=== PATIENT | male | born 1950 | race Caucasian/White ===

== ENCOUNTER → 2016-05-24 | Outpatient (CLI) | payer OTHER | END | disposition home or self-care (01) | LOC: Rad HDHVI 13:31 | PROVIDERS: ATTEND Internal Medicine Cardiovascular Disease | DX: I50.23 Acute on chronic systolic (congestive) heart failure (principal); I25.5 Ischemic cardiomyopathy | CPT/HCPCS: 93306 ==

== ENCOUNTER 2016-05-28 11:48 | Inpatient (IN) | payer OTHER ==
[~2016-05-28] VITALS: Ht 172.7 cm; Wt 137.5 kg
[2016-05-28] MEDS ORDERED: AMLO10TA2 PO (13:39)
[2016-05-28] MEDS ORDERED: BD (13:39)
[2016-05-28] MEDS ORDERED: ALLO100T PO (13:39)
[2016-05-28 13:54] LABS: Basophils # (auto) 0 uL; Basophils % (auto) 0.2 % (0.0-2.0); Eosinophils # (auto) 0.1 uL; Eosinophils % (auto) 0.8 % (0.0-7.0); Hematocrit 29.9 % (41.0-53.0); Hemoglobin 9.6 g/dL (13.5-17.5); Lymphocytes # (auto) 1.3 uL; Lymphocytes % (auto) 19.3 % (10.0-50.0); Mean Corpuscular Hgb Conc. 32.3 g/dL (32.0-36.0); Mean Platelet Volume 8.8 fL (7.4-10.4); Monocytes # (auto) 0.5 uL; Monocytes % (auto) 7.7 % (0.0-12.0); Platelet Count (auto) 208 10^3/uL (140-450); Red Cell Distribution Width 15.6 % (11.6-16.0)
[2016-05-28 14:07] LABS: Partial Thromboplastin Time 29.6 sec (22.64-33.71)
[2016-05-28 14:14] LABS: Albumin 3.6 g/dL (3.4-5.0); BUN/Creatinine Ratio 16.3; Calcium 8.4 mg/dL (8.5-10.1); Potassium 4.2 mmol/L (3.5-5.1)
[2016-05-28 14:16] LABS: Bilirubin, Total 0.5 mg/dL (0.2-1.0); Total Protein 7.4 g/dL (6.4-8.2)
[2016-05-28 14:23] LABS: B-Type Natriuretic Peptide 871.51 pg/mL (0-100); Temperature: 23.5 C (20.0-25.0)
[2016-05-28 14:31] LABS: INR 1.18 (0.9-1.15); Prothrombin Time 12.7 sec (9.37-12.3)
[2016-05-28] MEDS ORDERED: FUROSEMIDE 40 MG/4 ML VIAL IV ONE (16:30)
[2016-05-28] MEDS ORDERED: DEXTROSE (50%) 50ML SYRG IV PRN (18:45)
[2016-05-28] MEDS ORDERED: ONDANSETRON HCL 4 MG/2 ML VIAL IV PRN (19:00)
[2016-05-28] MEDS ORDERED: MORPHINE SULF INJ 2 MG/ML SYRINGE 1ML IV PRN ×2 (19:00)
[2016-05-28] MEDS ORDERED: NITROGLYCERIN 0.4 MG SL TAB SL PRN ×2 (19:00)
[2016-05-28] MEDS ORDERED: ACETAMINOPHEN 325 MG TAB PO PRN (19:00)
[2016-05-28] MEDS ORDERED: ASPirin-EC 81 mg tab PO ONE (19:00)
[2016-05-28] MEDS ORDERED: ALUM & MAG HYDROX-SIMETH LIQ(MAALOX) 30 ML PO PRN (19:00)
[2016-05-28] MEDS ORDERED: ZOLPIDEM TARTRATE 5 MG TAB PO PRN (19:00)
[2016-05-28] MEDS ORDERED: LORazepam 0.5 MG TAB PO PRN (19:00)
[2016-05-28] MEDS ORDERED: traMADol HCL 50 MG TAB PO PRN (19:00)
[2016-05-28] MEDS: DOCUSATE SOD 100 MG CAP PO SCH (20:13)
[2016-05-28 20:50] VITALS: BP 135/84
[2016-05-28] MEDS ORDERED: GLIP-204 PO (21:07)
[2016-05-28] MEDS ORDERED: INSUINJ18 SC (21:07)
[2016-05-28] MEDS ORDERED: TRAM50TA2 PO (21:07)
[2016-05-28] MEDS ORDERED: ACET325T82 PO (21:07)
[2016-05-28] MEDS ORDERED: FURO40TA PO (21:07)
[2016-05-28] MEDS ORDERED: CARV25TA PO (21:07)
[2016-05-28] MEDS ORDERED: FENO160T8 PO (21:07)
[2016-05-28] MEDS ORDERED: GABA-339 PO (21:07)
[2016-05-28] MEDS ORDERED: ERGO1CAP6 PO (21:07)
[2016-05-28] MEDS ORDERED: LEVO75TA6 PO (21:07)
[2016-05-28] MEDS ORDERED: ASPI-231 PO (21:07)
[2016-05-28] MEDS ORDERED: HYDR-2652 PO (21:07)
[2016-05-28] MEDS ORDERED: FER325T PO (21:07)
[2016-05-28] MEDS ORDERED: ATO40T PO (21:07)
[2016-05-28] MEDS ORDERED: ISOS60TA24 PO (21:07)
[2016-05-28 22:30] LABS: Urine Bilirubin Negative (Negative); Urine Blood Negative /uL (Negative); Urine Color Yellow (Yellow); Urine Glucose Normal (Normal); Urine Hyaline Cast FEW /lpf (0 - 2); Urine Ketone Negative (Negative); Urine Nitrite Negative (Negative); Urine RBC <1 /hpf (0 - 3); Urine Urobilinogen Normal (Negative)
[2016-05-28] MEDS: hydrALAZINE HCL 25 MG TAB PO SCH (22:34)
[2016-05-28] MEDS: GABAPENTIN 300 MG CAP PO SCH (22:34)
[2016-05-28] MEDS: SODIUM CHLOR 0.9% PF (SALINE LOCK) 10ML VIAL IV SCH (22:34)
[2016-05-28] MEDS: ATORVASTATIN 20 MG TAB PO SCH (22:34)
[2016-05-28] MEDS: CARVEDILOL 12.5 MG TAB PO SCH (22:35)
[2016-05-28] MEDS: POTASSIUM CHLORIDE 8 MEQ TAB PO SCH (22:35)
[2016-05-28] MEDS: ACCU-CHEK COMFORT CURVE STRIP VI SCH (22:38)
[2016-05-28] MEDS: InsuLIN REG 1unit/0.01ml Soln (100units/ml) SC SCH (22:38)
[2016-05-28] MEDS: INSULIN 70/30 1unit/0.01ml Susp (100units/ml) SC SCH (22:40)
[2016-05-29] VITALS (8 sets, daily range): BP systolic 93–149; BP diastolic 56–76
[2016-05-29] MEDS: GABAPENTIN 300 MG CAP PO SCH (05:33)
[2016-05-29] MEDS: hydrALAZINE HCL 25 MG TAB PO SCH ×3 (05:34→22:07)
[2016-05-29] MEDS: FUROSEMIDE 40 MG/4 ML VIAL IV SCH ×2 (05:35→18:35)
[2016-05-29] MEDS: SODIUM CHLOR 0.9% PF (SALINE LOCK) 10ML VIAL IV SCH ×3 (05:35→22:07)
[2016-05-29 05:58] LABS: Basophils # (auto) 0 uL; Basophils % (auto) 0.3 % (0.0-2.0); Eosinophils # (auto) 0.1 uL; Eosinophils % (auto) 0.9 % (0.0-7.0); Hemoglobin 9.6 g/dL (13.5-17.5); Lymphocytes # (auto) 1.1 uL; Lymphocytes % (auto) 18.9 % (10.0-50.0); Mean Corpuscular Hemoglobin 29.5 pg (28.0-32.0); Mean Corpuscular Hgb Conc. 32.9 g/dL (32.0-36.0); Mean Corpuscular Volume 89.8 fL (80.0-100.0); Mean Platelet Volume 8.7 fL (7.4-10.4); Monocytes # (auto) 0.4 uL; Monocytes % (auto) 7.6 % (0.0-12.0); Neutrophils # (auto) 4.2 uL; Neutrophils % (auto) 72.3 % (37.0-80.0); Platelet Count (auto) 204 10^3/uL (140-450); Red Cell Distribution Width 15.5 % (11.6-16.0); White Blood Cell 5.8 10^3/uL (4.4-10.8)
[2016-05-29 06:26] LABS: Albumin 3.4 g/dL (3.4-5.0); BUN/Creatinine Ratio 16.9; Bilirubin, Total 0.5 mg/dL (0.2-1.0); Calcium 8.8 mg/dL (8.5-10.1); Magnesium 3.2 mg/dL (1.6-2.6); Total Protein 7.4 g/dL (6.4-8.2)
[2016-05-29] MEDS: LEVOTHYROXINE SODIUM 25 MCG TAB PO SCH (06:28)
[2016-05-29] MEDS: ACCU-CHEK COMFORT CURVE STRIP VI SCH ×4 (06:28→22:06)
[2016-05-29] MEDS: glipiZIDE 5 MG TAB PO SCH (06:28)
[2016-05-29] MEDS: InsuLIN REG 1unit/0.01ml Soln (100units/ml) SC SCH ×4 (06:28→22:00)
[2016-05-29] MEDS ORDERED: LOSARTAN POTASSIUM 25 MG TAB PO SCH (10:00)
[2016-05-29] MEDS: INSULIN 70/30 1unit/0.01ml Susp (100units/ml) SC SCH ×2 (10:00→22:00)
[2016-05-29] MEDS: POTASSIUM CHLORIDE 8 MEQ TAB PO SCH (10:13)
[2016-05-29] MEDS: ASPirin-EC 81 mg tab PO SCH (10:14)
[2016-05-29] MEDS: ISOSORBIDE MONONITRATE 60 MG TAB PO SCH (10:14)
[2016-05-29] MEDS: ALLOPURINOL 100 MG TAB PO SCH (10:15)
[2016-05-29] MEDS: DOCUSATE SOD 100 MG CAP PO SCH (10:15)
[2016-05-29] MEDS: CARVEDILOL 12.5 MG TAB PO SCH (10:16)
[2016-05-29] MEDS: FERROUS SULFATE 325 MG TAB PO SCH (10:17)
[2016-05-29] MEDS: CLOPIDOGREL BISULFATE 75 MG TAB PO SCH (10:17)
[2016-05-29] MEDS: CHOLECALCIFEROL (VITD3) 1,000 UNIT TAB PO SCH (10:17)
[2016-05-29] MEDS: CARVEDILOL 3.125 MG TAB PO SCH (22:00)
[2016-05-29] MEDS: ATORVASTATIN 20 MG TAB PO SCH (22:08)
[2016-05-29] MEDS: GABAPENTIN 400 MG CAP PO SCH (22:08)
[2016-05-30] VITALS (7 sets, daily range): BP systolic 112–168; BP diastolic 53–86
[2016-05-30] MEDS: hydrALAZINE HCL 25 MG TAB PO SCH ×3 (06:00→22:11)
[2016-05-30] MEDS: glipiZIDE 5 MG TAB PO SCH (06:31)
[2016-05-30] MEDS: SODIUM CHLOR 0.9% PF (SALINE LOCK) 10ML VIAL IV SCH ×3 (06:31→22:12)
[2016-05-30] MEDS: FUROSEMIDE 40 MG/4 ML VIAL IV SCH ×2 (06:31→17:43)
[2016-05-30] MEDS: LEVOTHYROXINE SODIUM 25 MCG TAB PO SCH (06:32)
[2016-05-30] MEDS: InsuLIN REG 1unit/0.01ml Soln (100units/ml) SC SCH ×4 (06:32→22:00)
[2016-05-30] MEDS: ACCU-CHEK COMFORT CURVE STRIP VI SCH ×4 (06:32→22:12)
[2016-05-30 06:58] LABS: Basophils # (auto) 0 uL; Basophils % (auto) 0.4 % (0.0-2.0); Eosinophils # (auto) 0.1 uL; Eosinophils % (auto) 1.8 % (0.0-7.0); Hematocrit 30.7 % (41.0-53.0); Hemoglobin 9.9 g/dL (13.5-17.5); Lymphocytes # (auto) 1.5 uL; Mean Corpuscular Hemoglobin 28.9 pg (28.0-32.0); Mean Corpuscular Hgb Conc. 32.1 g/dL (32.0-36.0); Mean Corpuscular Volume 89.9 fL (80.0-100.0); Mean Platelet Volume 8.8 fL (7.4-10.4); Monocytes # (auto) 0.5 uL; Monocytes % (auto) 8.1 % (0.0-12.0); Neutrophils % (auto) 65.7 % (37.0-80.0); Platelet Count (auto) 205 10^3/uL (140-450); Red Cell Distribution Width 15.6 % (11.6-16.0); White Blood Cell 6.1 10^3/uL (4.4-10.8)
[2016-05-30 07:15] LABS: BUN/Creatinine Ratio 15.7; Calcium 8.6 mg/dL (8.5-10.1); Magnesium 2.9 mg/dL (1.6-2.6); Potassium 4.1 mmol/L (3.5-5.1)
[2016-05-30] MEDS: CARVEDILOL 3.125 MG TAB PO SCH ×2 (10:00→22:00)
[2016-05-30] MEDS: ISOSORBIDE MONONITRATE 60 MG TAB PO SCH ×2 (10:00→11:34)
[2016-05-30] MEDS: DOCUSATE SOD 100 MG CAP PO SCH (10:00)
[2016-05-30] MEDS: ASPirin-EC 81 mg tab PO SCH (10:17)
[2016-05-30] MEDS: ALLOPURINOL 100 MG TAB PO SCH (10:17)
[2016-05-30] MEDS: CLOPIDOGREL BISULFATE 75 MG TAB PO SCH (10:17)
[2016-05-30] MEDS: CHOLECALCIFEROL (VITD3) 1,000 UNIT TAB PO SCH (10:17)
[2016-05-30] MEDS: GABAPENTIN 400 MG CAP PO SCH ×2 (10:17→22:12)
[2016-05-30] MEDS: FERROUS SULFATE 325 MG TAB PO SCH (10:17)
[2016-05-30] MEDS: INSULIN 70/30 1unit/0.01ml Susp (100units/ml) SC SCH ×2 (10:22→22:13)
[2016-05-30] MEDS: POTASSIUM CHLORIDE 8 MEQ TAB PO SCH (10:22)
[2016-05-30] MEDS ORDERED: GIVE UN DILUTED IV ONE (15:30)
[2016-05-30] MEDS ORDERED: ADENOSINE IV ONE (15:30)
[2016-05-30] MEDS: ATORVASTATIN 20 MG TAB PO SCH (22:12)
[2016-05-31 05:30] VITALS: BP 140/60
[2016-05-31] MEDS: FUROSEMIDE 40 MG/4 ML VIAL IV SCH (05:43)
[2016-05-31] MEDS: SODIUM CHLOR 0.9% PF (SALINE LOCK) 10ML VIAL IV SCH (05:43)
[2016-05-31] MEDS: hydrALAZINE HCL 25 MG TAB PO SCH ×2 (05:44→14:21)
[2016-05-31] MEDS: glipiZIDE 5 MG TAB PO SCH (06:10)
[2016-05-31] MEDS: ACCU-CHEK COMFORT CURVE STRIP VI SCH ×2 (06:11→11:57)
[2016-05-31] MEDS: LEVOTHYROXINE SODIUM 25 MCG TAB PO SCH (06:11)
[2016-05-31] MEDS: InsuLIN REG 1unit/0.01ml Soln (100units/ml) SC SCH ×2 (06:11→11:57)
[2016-05-31 08:00] VITALS: BP 157/66
[2016-05-31 09:19] VITALS: BP 157/66
[2016-05-31] MEDS: ALLOPURINOL 100 MG TAB PO SCH (10:00)
[2016-05-31] MEDS: DOCUSATE SOD 100 MG CAP PO SCH (10:00)
[2016-05-31] MEDS: CHOLECALCIFEROL (VITD3) 1,000 UNIT TAB PO SCH (10:25)
[2016-05-31] MEDS: GABAPENTIN 400 MG CAP PO SCH (10:26)
[2016-05-31] MEDS: ISOSORBIDE MONONITRATE 60 MG TAB PO SCH (10:27)
[2016-05-31] MEDS: POTASSIUM CHLORIDE 8 MEQ TAB PO SCH (10:28)
[2016-05-31] MEDS: CLOPIDOGREL BISULFATE 75 MG TAB PO SCH (10:28)
[2016-05-31] MEDS: FERROUS SULFATE 325 MG TAB PO SCH (10:29)
[2016-05-31] MEDS: ASPirin-EC 81 mg tab PO SCH (10:29)
[2016-05-31] MEDS: CARVEDILOL 3.125 MG TAB PO SCH (10:30)
[2016-05-31] MEDS: INSULIN 70/30 1unit/0.01ml Susp (100units/ml) SC SCH (10:37)
[2016-05-31 13:00] VITALS: BP 154/74
[2016-05-31 15:00] VITALS: BP 154/74
== END 2016-05-31 15:30 | disposition home or self-care (01) | DRG 313 ==
LOC: ER 11:48 → TELE 11:49 → TELE-CENTR 20:50
PROVIDERS: ADMIT Internal Medicine; ATTEND Internal Medicine Cardiovascular Disease
DX: R07.89 Other chest pain (principal); I50.43 Acute on chronic combined systolic (congestive) and diastolic (congestive) heart failure; I13.0 Hypertensive heart and chronic kidney disease with heart failure and stage 1 through stage 4 chronic kidney disease, or unspecified chronic kidney disease; D68.9 Coagulation defect, unspecified; Z68.42 Body mass index [BMI] 45.0-49.9, adult; N18.4 Chronic kidney disease, stage 4 (severe); D63.8 Anemia in other chronic diseases classified elsewhere; E03.9 Hypothyroidism, unspecified; E10.21 Type 1 diabetes mellitus with diabetic nephropathy; E10.22 Type 1 diabetes mellitus with diabetic chronic kidney disease; E66.9 Obesity, unspecified; E78.5 Hyperlipidemia, unspecified; X58.XXXA Exposure to other specified factors, initial encounter; E83.42 Hypomagnesemia; E83.51 Hypocalcemia; I25.10 Atherosclerotic heart disease of native coronary artery without angina pectoris; S82.90XA Unspecified fracture of unspecified lower leg, initial encounter for closed fracture; I25.2 Old myocardial infarction; Z82.49 Family history of ischemic heart disease and other diseases of the circulatory system; Z83.3 Family history of diabetes mellitus; Z95.0 Presence of cardiac pacemaker; Z95.1 Presence of aortocoronary bypass graft; Z95.5 Presence of coronary angioplasty implant and graft; Y93.89 Activity, other specified; Y92.89 Other specified places as the place of occurrence of the external cause; Y99.8 Other external cause status; Z88.8 Allergy status to other drugs, medicaments and biological substances
CPT/HCPCS: 36415; 71020; 78452; 80048; 80053; 80061; 81001; 82962; 83036; 83735; 83880; 84443; 84484; 85025; 85610; 85730; 93005; 93017; 94761; 96374; J0153; J1815

== ENCOUNTER 2016-07-28 18:40 | Inpatient (IN) | payer OTHER ==
[~2016-07-28] VITALS: Ht 167.6 cm; Wt 138.4 kg
[~2016-07-28 18:40] MED LIST: ACET325T82 PO; ALLO100T PO; AMLO10TA2 PO; ASPI-231 PO; ATO40T PO; CARV25TA PO; ERGO1CAP6 PO; FENO160T8 PO; FER325T PO; FURO40TA PO; GABA-339 PO; GLIP-204 PO; HYDR-2652 PO; INSUINJ18 SC; ISOS60TA24 PO; LEVO75TA6 PO; TRAM50TA2 PO
[2016-07-28 19:49] LABS: Basophils # (auto) 0 uL; Basophils % (auto) 0.4 % (0.0-2.0); CONDITION Y; Eosinophils # (auto) 0.1 uL; Eosinophils % (auto) 1.4 % (0.0-7.0); Hematocrit 30.5 % (41.0-53.0); Lymphocytes # (auto) 1.5 uL; Lymphocytes % (auto) 29.5 % (10.0-50.0); Mean Corpuscular Hgb Conc. 32.9 g/dL (32.0-36.0); Mean Corpuscular Volume 88.3 fL (80.0-100.0); Mean Platelet Volume 8.9 fL (7.4-10.4); Monocytes # (auto) 0.5 uL; Monocytes % (auto) 9.9 % (0.0-12.0); Neutrophils # (auto) 2.9 uL; Neutrophils % (auto) 58.8 % (37.0-80.0); Platelet Count (auto) 189 10^3/uL (140-450); Red Cell Distribution Width 18.8 % (11.6-16.0)
[2016-07-28 19:58] LABS: INR 1.22 (0.9-1.15)
[2016-07-28 20:01] LABS: Prothrombin Time 13.3 sec (9.37-12.3)
[2016-07-28 20:08] LABS: Albumin 3.8 g/dL (3.4-5.0); BUN/Creatinine Ratio 18.2; Bilirubin, Total 0.6 mg/dL (0.2-1.0); Calcium 8.7 mg/dL (8.5-10.1); Potassium 4.5 mmol/L (3.5-5.1); Total Protein 7.3 g/dL (6.4-8.2)
[2016-07-28 20:26] LABS: B-Type Natriuretic Peptide 966.91 pg/mL (0-100)
[2016-07-28 20:41] LABS: Temperature: 23.1 C (20.0-25.0)
[2016-07-28] MEDS ORDERED: LEVOFLOXACIN 750MG 150 ML IV ONE (21:00)
[2016-07-28] MEDS ORDERED: FUROSEMIDE 20 MG/2 ML VIAL IV ONE ×2 (21:00→21:45)
[2016-07-28] MEDS ORDERED: TEMAZEPAM 15 MG CAP PO PRN (23:15)
[2016-07-28] MEDS ORDERED: MORPHINE SULF INJ 2 MG/ML SYRINGE 1ML IV PRN (23:15)
[2016-07-28] MEDS ORDERED: ACETAMINOPHEN 325 MG TAB PO PRN (23:15)
[2016-07-28] MEDS ORDERED: DEXTROSE (50%) 50ML SYRG IV PRN (23:15)
[2016-07-28] MEDS ORDERED: ONDANSETRON HCL 4 MG/2 ML VIAL IV PRN (23:15)
[2016-07-28] MEDS ORDERED: NITROGLYCERIN 0.4 MG SL TAB SL PRN (23:15)
[2016-07-28] MEDS: ACCU-CHEK COMFORT CURVE STRIP VI SCH (23:39)
[2016-07-28] MEDS: InsuLIN REG 1unit/0.01ml Soln (100units/ml) SC SCH (23:39)
[2016-07-28 23:56] VITALS: BP 135/70
[2016-07-29] MEDS ORDERED: INSUINJ18 SC (01:20)
[2016-07-29 05:00] VITALS: BP 136/68
[2016-07-29 05:16] LABS: Basophils # (auto) 0 uL; Basophils % (auto) 0.3 % (0.0-2.0); CONDITION Y; DEFINITIVE SEE PRINTOUT; Eosinophils # (auto) 0.1 uL; Eosinophils % (auto) 1.2 % (0.0-7.0); Hematocrit 29.7 % (41.0-53.0); Hemoglobin 9.6 g/dL (13.5-17.5); Lymphocytes # (auto) 1.1 uL; Lymphocytes % (auto) 20.1 % (10.0-50.0); Mean Corpuscular Hemoglobin 28.8 pg (28.0-32.0); Mean Corpuscular Hgb Conc. 32.5 g/dL (32.0-36.0); Mean Corpuscular Volume 88.6 fL (80.0-100.0); Mean Platelet Volume 8.8 fL (7.4-10.4); Monocytes # (auto) 0.5 uL; Monocytes % (auto) 8.8 % (0.0-12.0); Neutrophils # (auto) 3.8 uL; Neutrophils % (auto) 69.6 % (37.0-80.0); Platelet Count (auto) 187 10^3/uL (140-450); Red Cell Distribution Width 19.5 % (11.6-16.0); White Blood Cell 5.5 10^3/uL (4.4-10.8)
[2016-07-29 05:30] LABS: Albumin 3.5 g/dL (3.4-5.0); BUN/Creatinine Ratio 18.3; Calcium 8.4 mg/dL (8.5-10.1); Potassium 4.2 mmol/L (3.5-5.1)
[2016-07-29 05:33] LABS: Bilirubin, Total 0.7 mg/dL (0.2-1.0); Total Protein 7.3 g/dL (6.4-8.2)
[2016-07-29] MEDS ORDERED: FUROSEMIDE 40 MG TAB PO SCH (06:00)
[2016-07-29] MEDS: InsuLIN REG 1unit/0.01ml Soln (100units/ml) SC SCH ×3 (06:00→18:01)
[2016-07-29] MEDS: hydrALAZINE HCL 25 MG TAB PO SCH ×3 (06:02→22:11)
[2016-07-29] MEDS: ACCU-CHEK COMFORT CURVE STRIP VI SCH ×3 (06:06→18:01)
[2016-07-29] MEDS: LEVOTHYROXINE SODIUM 25 MCG TAB PO SCH (06:28)
[2016-07-29] MEDS: glipiZIDE 5 MG TAB PO SCH (06:28)
[2016-07-29 08:00] VITALS: BP 127/63
[2016-07-29 08:50] VITALS: BP 127/63
[2016-07-29] MEDS ORDERED: cefTRIAXone 1GM/50ML D5W 50 ML IV SCH (09:00)
[2016-07-29] MEDS ORDERED: FAMOTIDINE 20 MG TAB PO SCH (10:00)
[2016-07-29] MEDS: ALLOPURINOL 100 MG TAB PO SCH (10:00)
[2016-07-29] MEDS: ISOSORBIDE MONONITRATE 60 MG TAB PO SCH (10:00)
[2016-07-29] MEDS ORDERED: AZITHROMYCIN 500MG/D5W 250ML 250 ML IV SCH (10:00)
[2016-07-29] MEDS: FAMOTIDINE 20 MG TAB PO SCH (10:28)
[2016-07-29] MEDS: CARVEDILOL 12.5 MG TAB PO SCH ×2 (10:28→22:11)
[2016-07-29] MEDS: amLODIPine BESYLATE 5 MG TAB PO SCH (10:29)
[2016-07-29] MEDS: ASPirin 81 mg TAB PO SCH (10:29)
[2016-07-29] MEDS: ENOXAPARIN SOD 30 MG/0.3 ML SYRINGE SC SCH (10:30)
[2016-07-29 11:42] VITALS: BP 143/77
[2016-07-29] MEDS ORDERED: BUMETANIDE INJECTION 25 MG in GIVE UN-DILUTED 0 ML IV SCH (15:30)
[2016-07-29 17:40] VITALS: BP 132/68
[2016-07-29 22:06] VITALS: BP 128/65
[2016-07-29] MEDS: ATORVASTATIN 20 MG TAB PO SCH (22:11)
[2016-07-30] MEDS: ACCU-CHEK COMFORT CURVE STRIP VI SCH ×5 (00:12→23:58)
[2016-07-30] MEDS: InsuLIN REG 1unit/0.01ml Soln (100units/ml) SC SCH ×5 (00:18→23:58)
[2016-07-30 05:02] VITALS: BP 139/67
[2016-07-30 06:25] LABS: Basophils # (auto) 0 uL; Basophils % (auto) 0.1 % (0.0-2.0); CONDITION Y; DEFINITIVE SEE PRINTOUT; Eosinophils # (auto) 0.1 uL; Eosinophils % (auto) 1.1 % (0.0-7.0); Hematocrit 30.1 % (41.0-53.0); Hemoglobin 9.9 g/dL (13.5-17.5); Lymphocytes # (auto) 1.2 uL; Lymphocytes % (auto) 17.6 % (10.0-50.0); Mean Corpuscular Hgb Conc. 32.9 g/dL (32.0-36.0); Mean Corpuscular Volume 88.2 fL (80.0-100.0); Mean Platelet Volume 8.7 fL (7.4-10.4); Monocytes # (auto) 0.5 uL; Monocytes % (auto) 8.2 % (0.0-12.0); Neutrophils # (auto) 4.8 uL; Platelet Count (auto) 193 10^3/uL (140-450); Red Cell Distribution Width 19.1 % (11.6-16.0); White Blood Cell 6.6 10^3/uL (4.4-10.8)
[2016-07-30] MEDS: hydrALAZINE HCL 25 MG TAB PO SCH ×3 (06:33→21:42)
[2016-07-30] MEDS: glipiZIDE 5 MG TAB PO SCH (06:33)
[2016-07-30] MEDS: LEVOTHYROXINE SODIUM 25 MCG TAB PO SCH (06:34)
[2016-07-30 06:38] LABS: BUN/Creatinine Ratio 18.9; Calcium 8.8 mg/dL (8.5-10.1); Magnesium 2.9 mg/dL (1.6-2.6); Phosphorus 4.2 mg/dL (2.5-4.90); Potassium 4.2 mmol/L (3.5-5.1)
[2016-07-30 08:44] VITALS: BP 141/66
[2016-07-30] MEDS ORDERED: BUMETANIDE INJECTION 25 MG in GIVE UN-DILUTED 0 ML IV SCH (09:00)
[2016-07-30] MEDS: ASPirin 81 mg TAB PO SCH (09:04)
[2016-07-30] MEDS: amLODIPine BESYLATE 5 MG TAB PO SCH (09:05)
[2016-07-30] MEDS: ISOSORBIDE MONONITRATE 60 MG TAB PO SCH (09:05)
[2016-07-30] MEDS: CARVEDILOL 12.5 MG TAB PO SCH ×2 (09:05→21:42)
[2016-07-30] MEDS: ENOXAPARIN SOD 30 MG/0.3 ML SYRINGE SC SCH (09:06)
[2016-07-30] MEDS: ALLOPURINOL 100 MG TAB PO SCH (09:06)
[2016-07-30] MEDS: FAMOTIDINE 20 MG TAB PO SCH (09:06)
[2016-07-30] MEDS: CLOTRIMAZOLE 1 % CREAM 15GM TOP SCH ×2 (09:34→21:42)
[2016-07-30 13:06] VITALS: BP 129/56
[2016-07-30 16:23] VITALS: BP 131/75
[2016-07-30] MEDS: ATORVASTATIN 20 MG TAB PO SCH (21:42)
[2016-07-30 21:46] VITALS: BP 128/71
[2016-07-31] MEDS: HYDROcodone-ACET 5/325MG TAB PO PRN ×2 (01:10→05:32)
[2016-07-31 05:02] VITALS: BP 126/71
[2016-07-31] MEDS: hydrALAZINE HCL 25 MG TAB PO SCH (05:31)
[2016-07-31] MEDS: ACCU-CHEK COMFORT CURVE STRIP VI SCH ×2 (05:39→11:49)
[2016-07-31] MEDS: InsuLIN REG 1unit/0.01ml Soln (100units/ml) SC SCH ×2 (05:39→11:49)
[2016-07-31 06:06] LABS: Basophils # (auto) 0 uL; Basophils % (auto) 0.3 % (0.0-2.0); CONDITION Y; DEFINITIVE SEE PRINTOUT; Eosinophils # (auto) 0.1 uL; Hematocrit 27.6 % (41.0-53.0); Hemoglobin 9.1 g/dL (13.5-17.5); Lymphocytes # (auto) 1.1 uL; Lymphocytes % (auto) 19.6 % (10.0-50.0); Mean Corpuscular Hgb Conc. 32.9 g/dL (32.0-36.0); Mean Platelet Volume 8.9 fL (7.4-10.4); Monocytes # (auto) 0.6 uL; Monocytes % (auto) 9.8 % (0.0-12.0); Neutrophils # (auto) 3.9 uL; Neutrophils % (auto) 69.3 % (37.0-80.0); Platelet Count (auto) 180 10^3/uL (140-450); Red Cell Distribution Width 19.2 % (11.6-16.0); White Blood Cell 5.7 10^3/uL (4.4-10.8)
[2016-07-31 06:36] LABS: BUN/Creatinine Ratio 20.7; Phosphorus 4.4 mg/dL (2.5-4.90); Potassium 4.1 mmol/L (3.5-5.1)
[2016-07-31] MEDS: glipiZIDE 5 MG TAB PO SCH (06:43)
[2016-07-31] MEDS: LEVOTHYROXINE SODIUM 25 MCG TAB PO SCH (06:44)
[2016-07-31 08:51] VITALS: BP 138/66
[2016-07-31] MEDS ORDERED: BUMETANIDE INJECTION 25 MG in GIVE UN-DILUTED 0 ML IV SCH (09:00)
[2016-07-31] MEDS ORDERED: guaiFENesin-DEXTROMETHORPHAN 5ML SYR PO PRN (09:30)
[2016-07-31] MEDS ORDERED: BUME1TAB26 PO (09:41)
[2016-07-31] MEDS ORDERED: GABAPENTIN 100 MG CAP PO SCH (10:00)
[2016-07-31] MEDS ORDERED: GABAPENTIN 400 MG CAP PO SCH (10:00)
[2016-07-31] MEDS: ISOSORBIDE MONONITRATE 60 MG TAB PO SCH (10:05)
[2016-07-31] MEDS: ASPirin 81 mg TAB PO SCH (10:05)
[2016-07-31] MEDS: CARVEDILOL 12.5 MG TAB PO SCH (10:05)
[2016-07-31] MEDS: amLODIPine BESYLATE 5 MG TAB PO SCH (10:06)
[2016-07-31] MEDS: FAMOTIDINE 20 MG TAB PO SCH (10:06)
[2016-07-31] MEDS: ALLOPURINOL 100 MG TAB PO SCH (10:07)
[2016-07-31] MEDS: CLOTRIMAZOLE 1 % CREAM 15GM TOP SCH (10:07)
[2016-07-31] MEDS: ENOXAPARIN SOD 30 MG/0.3 ML SYRINGE SC SCH (10:07)
[2016-07-31 13:00] VITALS: BP 138/65
== END 2016-07-31 12:05 | disposition home or self-care (01) | DRG 291 ==
LOC: ER 19:01 → TELE-CENTR 19:02
PROVIDERS: ADMIT Internal Medicine; ATTEND Nurse Practitioner Acute Care
DX: I13.0 Hypertensive heart and chronic kidney disease with heart failure and stage 1 through stage 4 chronic kidney disease, or unspecified chronic kidney disease (principal); I50.43 Acute on chronic combined systolic (congestive) and diastolic (congestive) heart failure; E43 Unspecified severe protein-calorie malnutrition; N17.9 Acute kidney failure, unspecified; N18.4 Chronic kidney disease, stage 4 (severe); Z68.42 Body mass index [BMI] 45.0-49.9, adult; I25.10 Atherosclerotic heart disease of native coronary artery without angina pectoris; M19.90 Unspecified osteoarthritis, unspecified site; D63.8 Anemia in other chronic diseases classified elsewhere; E78.5 Hyperlipidemia, unspecified; L08.9 Local infection of the skin and subcutaneous tissue, unspecified; R00.1 Bradycardia, unspecified; E11.22 Type 2 diabetes mellitus with diabetic chronic kidney disease; E66.01 Morbid (severe) obesity due to excess calories; I25.5 Ischemic cardiomyopathy; Z95.810 Presence of automatic (implantable) cardiac defibrillator; Z88.8 Allergy status to other drugs, medicaments and biological substances; Z90.49 Acquired absence of other specified parts of digestive tract; Z95.1 Presence of aortocoronary bypass graft; Z83.3 Family history of diabetes mellitus; Z82.49 Family history of ischemic heart disease and other diseases of the circulatory system; I25.2 Old myocardial infarction
CPT/HCPCS: 36415; 71010; 71020; 80048; 80053; 82962; 83735; 83880; 84100; 84484; 85025; 85379; 85610; 85730; 87040; 93005; 93970; 94761; 96365; 96375; J0696; J1815; J1956

== ENCOUNTER 2016-08-10 17:03 | Emergency (ER) | payer OTHER ==
[~2016-08-10] VITALS: Ht 157.5 cm; Wt 136.1 kg
[~2016-08-10 17:03] MED LIST changes: +BUME1TAB26 PO; -FURO40TA PO
[2016-08-11 06:06] VITALS: BP 158/78
[2016-08-11] MEDS ORDERED: HYDROcodone-ACET 5/325MG TAB PO ONE (07:30)
== END 2016-08-11 08:14 | disposition home or self-care (01) ==
LOC: ER 17:07
DX: N50.89 Other specified disorders of the male genital organs (principal); I25.810 Atherosclerosis of coronary artery bypass graft(s) without angina pectoris; E11.22 Type 2 diabetes mellitus with diabetic chronic kidney disease; I13.0 Hypertensive heart and chronic kidney disease with heart failure and stage 1 through stage 4 chronic kidney disease, or unspecified chronic kidney disease; N18.9 Chronic kidney disease, unspecified; I50.9 Heart failure, unspecified; E78.5 Hyperlipidemia, unspecified; I25.2 Old myocardial infarction; E07.9 Disorder of thyroid, unspecified; Z79.82 Long term (current) use of aspirin; Z79.4 Long term (current) use of insulin; Z79.899 Other long term (current) drug therapy; Z88.8 Allergy status to other drugs, medicaments and biological substances
CPT/HCPCS: 76870

== ENCOUNTER 2016-09-14 12:07 | Inpatient (IN) | payer OTHER ==
[~2016-09-14] VITALS: Ht 170.2 cm; Wt 133.8 kg
[2016-09-14 12:58] LABS: Basophils # (auto) 0 uL; Basophils % (auto) 0.3 % (0.0-2.0); CONDITION Y; DEFINITIVE SEE PRINTOUT; Eosinophils # (auto) 0.1 uL; Eosinophils % (auto) 1.2 % (0.0-7.0); Hematocrit 29.4 % (41.0-53.0); Hemoglobin 9.7 g/dL (13.5-17.5); Lymphocytes # (auto) 1.1 uL; Lymphocytes % (auto) 24.6 % (10.0-50.0); Mean Corpuscular Hemoglobin 29.3 pg (28.0-32.0); Mean Corpuscular Hgb Conc. 33.2 g/dL (32.0-36.0); Mean Corpuscular Volume 88.4 fL (80.0-100.0); Mean Platelet Volume 8.9 fL (7.4-10.4); Monocytes # (auto) 0.5 uL; Monocytes % (auto) 10.5 % (0.0-12.0); Neutrophils % (auto) 63.4 % (37.0-80.0); Platelet Count (auto) 188 10^3/uL (140-450); Red Cell Distribution Width 19.6 % (11.6-16.0); White Blood Cell 4.7 10^3/uL (4.4-10.8)
[2016-09-14 13:17] LABS: Albumin 3.7 g/dL (3.4-5.0); BUN/Creatinine Ratio 17.7; Calcium 8.7 mg/dL (8.5-10.1); Magnesium 3.1 mg/dL (1.6-2.6); Potassium 4.1 mmol/L (3.5-5.1)
[2016-09-14 13:24] LABS: B-Type Natriuretic Peptide 1824.97 pg/mL (0-100); INR 1.16 (0.9-1.15); Partial Thromboplastin Time 28.3 sec (22.64-33.71)
[2016-09-14 13:33] LABS: Prothrombin Time 12.7 sec (9.37-12.3)
[2016-09-14 13:37] LABS: Bilirubin, Total 0.7 mg/dL (0.2-1.0); Temperature: 23.3 C (20.0-25.0); Total Protein 7.3 g/dL (6.4-8.2)
[2016-09-14 15:09] LABS: Anisocytosis Moderate; Platelet Estimate Adequate; Schistocytes FEW; Stomatocytes Few
[2016-09-14] MEDS ORDERED: TEMAZEPAM 15 MG CAP PO PRN (15:30)
[2016-09-14] MEDS ORDERED: LORazepam 0.5 MG TAB PO PRN (15:30)
[2016-09-14] MEDS ORDERED: ACETAMINOPHEN 500 MG TAB PO PRN (15:30)
[2016-09-14] MEDS ORDERED: NITROGLYCERIN 0.4 MG SL TAB SL PRN (15:30)
[2016-09-14] MEDS ORDERED: MORPHINE SULF INJ 2 MG/ML SYRINGE 1ML IV PRN (15:30)
[2016-09-14] MEDS ORDERED: LACTULOSE 20Gm/30ML SOLN PO PRN (15:30)
[2016-09-14] MEDS ORDERED: MORPHINE SULFATE 4 MG/ML SYRG IV PRN (15:30)
[2016-09-14] MEDS ORDERED: PROMETHAZINE HCL 25 MG/ML 1ML IV PRN (15:30)
[2016-09-14] MEDS ORDERED: traMADol HCL 50 MG TAB PO PRN (15:30)
[2016-09-14 16:11] VITALS: BP 130/68
[2016-09-14] MEDS: FUROSEMIDE 40 MG/4 ML VIAL IV SCH (17:59)
[2016-09-14] MEDS ORDERED: CLOP75TA28 PO (18:13)
[2016-09-14 22:00] VITALS: BP 128/66
[2016-09-14] MEDS: CARVEDILOL 12.5 MG TAB PO SCH (22:00)
[2016-09-14] MEDS ORDERED: BUMETANIDE 1 MG TAB PO SCH (22:00)
[2016-09-14] MEDS: SODIUM CHLOR 0.9% PF (SALINE LOCK) 10ML VIAL IV SCH (22:03)
[2016-09-14] MEDS: hydrALAZINE HCL 25 MG TAB PO SCH (22:04)
[2016-09-14] MEDS: ATORVASTATIN 20 MG TAB PO SCH (22:04)
[2016-09-14] MEDS: GABAPENTIN 300 MG CAP PO SCH (22:04)
[2016-09-15 04:02] VITALS: BP 128/66
[2016-09-15 05:39] VITALS: BP 147/65
[2016-09-15] MEDS: FUROSEMIDE 40 MG/4 ML VIAL IV SCH ×2 (05:54→17:49)
[2016-09-15] MEDS: SODIUM CHLOR 0.9% PF (SALINE LOCK) 10ML VIAL IV SCH ×3 (05:54→22:54)
[2016-09-15] MEDS: hydrALAZINE HCL 25 MG TAB PO SCH ×3 (05:55→22:55)
[2016-09-15] MEDS: LEVOTHYROXINE SODIUM 25 MCG TAB PO SCH (05:56)
[2016-09-15 06:26] LABS: Basophils # (auto) 0 uL; Basophils % (auto) 0.4 % (0.0-2.0); CONDITION Y; DEFINITIVE SEE PRINTOUT; Eosinophils # (auto) 0.1 uL; Eosinophils % (auto) 1.4 % (0.0-7.0); Hematocrit 29.1 % (41.0-53.0); Hemoglobin 9.5 g/dL (13.5-17.5); Lymphocytes # (auto) 1.1 uL; Mean Corpuscular Hemoglobin 29.3 pg (28.0-32.0); Mean Corpuscular Hgb Conc. 32.7 g/dL (32.0-36.0); Mean Corpuscular Volume 89.7 fL (80.0-100.0); Mean Platelet Volume 9.4 fL (7.4-10.4); Monocytes # (auto) 0.4 uL; Monocytes % (auto) 9.4 % (0.0-12.0); Neutrophils % (auto) 64.8 % (37.0-80.0); Platelet Count (auto) 181 10^3/uL (140-450); Red Cell Distribution Width 19.7 % (11.6-16.0); White Blood Cell 4.7 10^3/uL (4.4-10.8)
[2016-09-15 06:41] LABS: B-Type Natriuretic Peptide 1599.15 pg/mL (0-100)
[2016-09-15 06:56] LABS: Albumin 3.6 g/dL (3.4-5.0); BUN/Creatinine Ratio 18.5; Bilirubin, Total 0.8 mg/dL (0.2-1.0); Calcium 8.7 mg/dL (8.5-10.1); Potassium 3.9 mmol/L (3.5-5.1); Total Protein 7.1 g/dL (6.4-8.2)
[2016-09-15 07:30] LABS: Temperature: 22.5 C (20.0-25.0)
[2016-09-15 08:55] VITALS: BP 131/62
[2016-09-15] MEDS: amLODIPine BESYLATE 5 MG TAB PO SCH (09:08)
[2016-09-15] MEDS: ASPirin 81 mg TAB PO SCH (09:09)
[2016-09-15] MEDS: PANTOPRAZOLE 40 MG TAB PO SCH (09:10)
[2016-09-15] MEDS: FERROUS SULFATE 325 MG TAB PO SCH (09:11)
[2016-09-15] MEDS: ISOSORBIDE MONONITRATE 60 MG TAB PO SCH (09:11)
[2016-09-15] MEDS: CARVEDILOL 12.5 MG TAB PO SCH ×2 (09:12→22:00)
[2016-09-15] MEDS: ALLOPURINOL 100 MG TAB PO SCH (09:13)
[2016-09-15] MEDS: GABAPENTIN 300 MG CAP PO SCH ×2 (09:13→22:56)
[2016-09-15] MEDS: FENOFIBRATE 160MG PO SCH (09:14)
[2016-09-15] MEDS ORDERED: ENALAPRIL MALEATE 2.5 MG TAB PO SCH (10:00)
[2016-09-15] MEDS ORDERED: ENOXAPARIN SOD 40 MG/0.4 ML SYRINGE SC SCH ×2 (10:00)
[2016-09-15] MEDS ORDERED: POTASSIUM CHL 20 Meq TABLET PO ONE (14:45)
[2016-09-15] MEDS ORDERED: METOLAZONE 5 MG TAB PO ONE (14:45)
[2016-09-15] MEDS ORDERED: DEXTROSE (50%) 50ML SYRG IV PRN (15:00)
[2016-09-15] MEDS: ACCU-CHEK COMFORT CURVE STRIP VI SCH ×2 (15:12→22:56)
[2016-09-15 17:00] VITALS: BP 130/59
[2016-09-15] MEDS: InsuLIN REG 1unit/0.01ml Soln (100units/ml) SC SCH ×2 (17:00→22:57)
[2016-09-15] MEDS: INSULIN 70/30 1unit/0.01ml Susp (100units/ml) SC SCH (17:49)
[2016-09-15 21:55] VITALS: BP 118/80
[2016-09-15] MEDS: ATORVASTATIN 20 MG TAB PO SCH (22:55)
[2016-09-16 04:45] VITALS: BP 119/50
[2016-09-16] MEDS: SODIUM CHLOR 0.9% PF (SALINE LOCK) 10ML VIAL IV SCH ×3 (05:34→21:41)
[2016-09-16] MEDS: FUROSEMIDE 40 MG/4 ML VIAL IV SCH ×2 (05:34→18:57)
[2016-09-16] MEDS: hydrALAZINE HCL 25 MG TAB PO SCH ×3 (05:34→21:42)
[2016-09-16] MEDS: ACCU-CHEK COMFORT CURVE STRIP VI SCH ×4 (05:35→21:42)
[2016-09-16] MEDS: InsuLIN REG 1unit/0.01ml Soln (100units/ml) SC SCH ×4 (05:35→21:42)
[2016-09-16 06:37] LABS: BUN/Creatinine Ratio 18.3; Calcium 9.2 mg/dL (8.5-10.1); Potassium 4.4 mmol/L (3.5-5.1)
[2016-09-16] MEDS: LEVOTHYROXINE SODIUM 25 MCG TAB PO SCH (06:44)
[2016-09-16] MEDS: INSULIN 70/30 1unit/0.01ml Susp (100units/ml) SC SCH ×2 (08:28→18:48)
[2016-09-16 09:00] VITALS: BP 132/60
[2016-09-16] MEDS: GABAPENTIN 300 MG CAP PO SCH ×2 (09:47→21:42)
[2016-09-16] MEDS: ENOXAPARIN SOD 30 MG/0.3 ML SYRINGE SC SCH (09:47)
[2016-09-16] MEDS: FERROUS SULFATE 325 MG TAB PO SCH (09:49)
[2016-09-16] MEDS: ISOSORBIDE MONONITRATE 60 MG TAB PO SCH (09:49)
[2016-09-16] MEDS: CARVEDILOL 12.5 MG TAB PO SCH ×2 (09:50→21:42)
[2016-09-16] MEDS: PANTOPRAZOLE 40 MG TAB PO SCH (09:50)
[2016-09-16] MEDS: amLODIPine BESYLATE 5 MG TAB PO SCH (09:50)
[2016-09-16] MEDS: ASPirin 81 mg TAB PO SCH (09:51)
[2016-09-16] MEDS: ALLOPURINOL 100 MG TAB PO SCH (09:53)
[2016-09-16] MEDS: FENOFIBRATE 160MG PO SCH (10:00)
[2016-09-16 12:57] VITALS: BP 128/58
[2016-09-16 16:59] VITALS: BP 120/56
[2016-09-16] MEDS: ATORVASTATIN 20 MG TAB PO SCH (21:42)
[2016-09-16 21:49] VITALS: BP 117/52
[2016-09-17] VITALS (7 sets, daily range): BP systolic 117–147; BP diastolic 55–76
[2016-09-17] MEDS: LEVOTHYROXINE SODIUM 25 MCG TAB PO SCH (06:25)
[2016-09-17] MEDS: FUROSEMIDE 40 MG/4 ML VIAL IV SCH ×2 (06:25→18:08)
[2016-09-17] MEDS: InsuLIN REG 1unit/0.01ml Soln (100units/ml) SC SCH ×4 (06:25→22:00)
[2016-09-17] MEDS: hydrALAZINE HCL 25 MG TAB PO SCH ×3 (06:25→22:09)
[2016-09-17] MEDS: SODIUM CHLOR 0.9% PF (SALINE LOCK) 10ML VIAL IV SCH ×3 (06:25→22:03)
[2016-09-17] MEDS: ACCU-CHEK COMFORT CURVE STRIP VI SCH ×4 (06:26→22:05)
[2016-09-17 06:49] LABS: Potassium 3.8 mmol/L (3.5-5.1)
[2016-09-17 06:52] LABS: BUN/Creatinine Ratio 19.6
[2016-09-17] MEDS: INSULIN 70/30 1unit/0.01ml Susp (100units/ml) SC SCH ×2 (08:24→18:04)
[2016-09-17] MEDS: CARVEDILOL 12.5 MG TAB PO SCH ×2 (10:00→22:00)
[2016-09-17] MEDS: FENOFIBRATE 160MG PO SCH (10:00)
[2016-09-17] MEDS: ISOSORBIDE MONONITRATE 60 MG TAB PO SCH (10:29)
[2016-09-17] MEDS: GABAPENTIN 300 MG CAP PO SCH ×2 (10:29→22:05)
[2016-09-17] MEDS: ASPirin 81 mg TAB PO SCH (10:30)
[2016-09-17] MEDS: FERROUS SULFATE 325 MG TAB PO SCH (10:31)
[2016-09-17] MEDS: PANTOPRAZOLE 40 MG TAB PO SCH (10:32)
[2016-09-17] MEDS: ALLOPURINOL 100 MG TAB PO SCH (10:33)
[2016-09-17] MEDS: ENOXAPARIN SOD 30 MG/0.3 ML SYRINGE SC SCH (10:34)
[2016-09-17] MEDS: amLODIPine BESYLATE 5 MG TAB PO SCH (10:35)
[2016-09-17] MEDS ORDERED: METOLAZONE 5 MG TAB PO ONE (15:15)
[2016-09-17] MEDS: ATORVASTATIN 20 MG TAB PO SCH (22:04)
[2016-09-18] MEDS: HYDROcodone-ACET 5/325MG TAB PO PRN (03:51)
[2016-09-18 05:00] VITALS: BP 122/60
[2016-09-18] MEDS: hydrALAZINE HCL 25 MG TAB PO SCH ×3 (06:12→22:10)
[2016-09-18] MEDS: LEVOTHYROXINE SODIUM 25 MCG TAB PO SCH (06:12)
[2016-09-18] MEDS: SODIUM CHLOR 0.9% PF (SALINE LOCK) 10ML VIAL IV SCH ×3 (06:12→22:08)
[2016-09-18] MEDS: FUROSEMIDE 40 MG/4 ML VIAL IV SCH ×2 (06:13→17:27)
[2016-09-18] MEDS: ACCU-CHEK COMFORT CURVE STRIP VI SCH ×4 (06:22→22:25)
[2016-09-18 06:24] LABS: BUN/Creatinine Ratio 20.7; Calcium 8.8 mg/dL (8.5-10.1)
[2016-09-18] MEDS: InsuLIN REG 1unit/0.01ml Soln (100units/ml) SC SCH ×4 (06:46→22:00)
[2016-09-18] MEDS: INSULIN 70/30 1unit/0.01ml Susp (100units/ml) SC SCH ×2 (08:20→17:27)
[2016-09-18 08:25] VITALS: BP 133/68
[2016-09-18] MEDS: CARVEDILOL 12.5 MG TAB PO SCH ×2 (10:00→22:09)
[2016-09-18] MEDS: FENOFIBRATE 160MG PO SCH (10:00)
[2016-09-18] MEDS: ASPirin 81 mg TAB PO SCH (10:32)
[2016-09-18] MEDS: FERROUS SULFATE 325 MG TAB PO SCH (10:33)
[2016-09-18] MEDS: GABAPENTIN 300 MG CAP PO SCH ×2 (10:35→22:09)
[2016-09-18] MEDS: amLODIPine BESYLATE 5 MG TAB PO SCH (10:36)
[2016-09-18] MEDS: PANTOPRAZOLE 40 MG TAB PO SCH (10:36)
[2016-09-18] MEDS: ISOSORBIDE MONONITRATE 60 MG TAB PO SCH (10:36)
[2016-09-18] MEDS: METOLAZONE 5 MG TAB PO SCH (10:37)
[2016-09-18] MEDS: ALLOPURINOL 100 MG TAB PO SCH (10:38)
[2016-09-18] MEDS: ENOXAPARIN SOD 30 MG/0.3 ML SYRINGE SC SCH (10:38)
[2016-09-18 12:31] VITALS: BP 123/53
[2016-09-18 17:08] VITALS: BP 123/63
[2016-09-18 20:00] VITALS: BP 132/70
[2016-09-18 22:00] VITALS: BP 132/70
[2016-09-18] MEDS: ATORVASTATIN 20 MG TAB PO SCH (22:10)
[2016-09-19] MEDS: HYDROcodone-ACET 5/325MG TAB PO PRN (03:17)
[2016-09-19 05:38] VITALS: BP 125/62
[2016-09-19] MEDS: hydrALAZINE HCL 25 MG TAB PO SCH ×3 (06:02→21:56)
[2016-09-19] MEDS: SODIUM CHLOR 0.9% PF (SALINE LOCK) 10ML VIAL IV SCH ×3 (06:02→21:47)
[2016-09-19] MEDS: FUROSEMIDE 40 MG/4 ML VIAL IV SCH (06:02)
[2016-09-19] MEDS: LEVOTHYROXINE SODIUM 25 MCG TAB PO SCH (06:03)
[2016-09-19] MEDS: ACCU-CHEK COMFORT CURVE STRIP VI SCH ×4 (06:03→21:47)
[2016-09-19] MEDS: InsuLIN REG 1unit/0.01ml Soln (100units/ml) SC SCH ×4 (06:07→21:15)
[2016-09-19 06:16] LABS: Basophils # (auto) 0 uL; Basophils % (auto) 0.7 % (0.0-2.0); CONDITION Y; DEFINITIVE SEE PRINTOUT; Eosinophils # (auto) 0.1 uL; Eosinophils % (auto) 1.5 % (0.0-7.0); Hematocrit 27.2 % (41.0-53.0); Lymphocytes % (auto) 21.1 % (10.0-50.0); Mean Corpuscular Hemoglobin 29.5 pg (28.0-32.0); Mean Corpuscular Hgb Conc. 33.2 g/dL (32.0-36.0); Mean Corpuscular Volume 88.8 fL (80.0-100.0); Monocytes # (auto) 0.5 uL; Neutrophils # (auto) 3.1 uL; Neutrophils % (auto) 66.7 % (37.0-80.0); Platelet Count (auto) 173 10^3/uL (140-450); Red Cell Distribution Width 19.4 % (11.6-16.0); White Blood Cell 4.6 10^3/uL (4.4-10.8)
[2016-09-19 06:29] LABS: Albumin 3.6 g/dL (3.4-5.0); Calcium 8.8 mg/dL (8.5-10.1); Potassium 3.9 mmol/L (3.5-5.1)
[2016-09-19 06:33] LABS: BUN/Creatinine Ratio 20.3; Bilirubin, Total 0.8 mg/dL (0.2-1.0); Phosphorus 4.4 mg/dL (2.5-4.90)
[2016-09-19] MEDS: INSULIN 70/30 1unit/0.01ml Susp (100units/ml) SC SCH ×2 (08:30→17:54)
[2016-09-19 09:36] VITALS: BP 121/62
[2016-09-19] MEDS: CARVEDILOL 12.5 MG TAB PO SCH ×2 (10:00→21:46)
[2016-09-19] MEDS: FENOFIBRATE 160MG PO SCH (10:00)
[2016-09-19] MEDS: ASPirin 81 mg TAB PO SCH (10:16)
[2016-09-19] MEDS: FERROUS SULFATE 325 MG TAB PO SCH (10:17)
[2016-09-19] MEDS: GABAPENTIN 300 MG CAP PO SCH ×2 (10:19→21:56)
[2016-09-19] MEDS: METOLAZONE 5 MG TAB PO SCH (10:21)
[2016-09-19] MEDS: amLODIPine BESYLATE 5 MG TAB PO SCH (10:21)
[2016-09-19] MEDS: ISOSORBIDE MONONITRATE 60 MG TAB PO SCH (10:23)
[2016-09-19] MEDS: PANTOPRAZOLE 40 MG TAB PO SCH (10:24)
[2016-09-19 10:25] LABS: Hepatitis B Surface Antibody Positive
[2016-09-19] MEDS: ALLOPURINOL 100 MG TAB PO SCH (10:25)
[2016-09-19] MEDS: ENOXAPARIN SOD 30 MG/0.3 ML SYRINGE SC SCH (10:25)
[2016-09-19] MEDS ORDERED: PHYTONADIONE (VIT K)10 MG/ML 1ML VIAL SUBCUT ONE (11:00)
[2016-09-19 13:00] VITALS: BP 128/62
[2016-09-19 17:00] VITALS: BP 123/60
[2016-09-19] MEDS: BUMETANIDE (0.25MG/ML) 4 ML VIAL IV SCH (17:55)
[2016-09-19 20:00] VITALS: BP 124/62
[2016-09-19 21:30] VITALS: BP 124/62
[2016-09-19] MEDS: ATORVASTATIN 20 MG TAB PO SCH (21:56)
[2016-09-20 05:00] VITALS: BP 142/65
[2016-09-20] MEDS: SODIUM CHLOR 0.9% PF (SALINE LOCK) 10ML VIAL IV SCH ×3 (05:47→22:31)
[2016-09-20] MEDS: BUMETANIDE (0.25MG/ML) 4 ML VIAL IV SCH ×2 (05:47→17:56)
[2016-09-20] MEDS: hydrALAZINE HCL 25 MG TAB PO SCH ×3 (05:48→22:32)
[2016-09-20] MEDS: ACCU-CHEK COMFORT CURVE STRIP VI SCH ×4 (05:48→22:39)
[2016-09-20] MEDS: LEVOTHYROXINE SODIUM 25 MCG TAB PO SCH (05:48)
[2016-09-20] MEDS ORDERED: FUROSEMIDE 40 MG/4 ML VIAL IV SCH (06:00)
[2016-09-20] MEDS: InsuLIN REG 1unit/0.01ml Soln (100units/ml) SC SCH ×4 (06:08→22:40)
[2016-09-20 06:27] LABS: Urine Bilirubin Negative (Negative); Urine Blood Negative /uL (Negative); Urine Color Yellow (Yellow); Urine Glucose Normal (Normal); Urine Hyaline Cast FEW /lpf (0 - 2); Urine Ketone Negative (Negative); Urine Nitrite Negative (Negative); Urine RBC <1 /hpf (0 - 3); Urine Urobilinogen Normal (Negative)
[2016-09-20] MEDS ORDERED: LIDOCAINE 1% HCL (LOCAL ANESTH.) INJ 20ML MDV ONE ×2 (06:43→06:56)
[2016-09-20] MEDS ORDERED: SUCCINYLCHOLINE CHLORIDE 20 MG/ML 10ML VIAL IV ONE (06:43)
[2016-09-20] MEDS ORDERED: PROPOFOL 10 MG/ML 20 ML IV ONE (06:50)
[2016-09-20] MEDS ORDERED: fentaNYL CITRATE 100 MCG/2 ML VL ONE (06:50)
[2016-09-20] MEDS ORDERED: MIDAZOLAM HCL 1MG/1ML-2 ML VIAL ONE (06:50)
[2016-09-20] MEDS ORDERED: SODIUM CHLORIDE LOCK 20 ML ONE (06:50)
[2016-09-20 06:56] LABS: Basophils # (auto) 0 uL; Basophils % (auto) 0.3 % (0.0-2.0); CONDITION Y; DEFINITIVE SEE PRINTOUT; Eosinophils # (auto) 0.1 uL; Eosinophils % (auto) 1.6 % (0.0-7.0); Hematocrit 29.3 % (41.0-53.0); Hemoglobin 9.8 g/dL (13.5-17.5); Lymphocytes # (auto) 1.2 uL; Lymphocytes % (auto) 21.5 % (10.0-50.0); Mean Corpuscular Hemoglobin 29.8 pg (28.0-32.0); Mean Corpuscular Hgb Conc. 33.4 g/dL (32.0-36.0); Mean Corpuscular Volume 89.1 fL (80.0-100.0); Mean Platelet Volume 9.3 fL (7.4-10.4); Monocytes # (auto) 0.5 uL; Monocytes % (auto) 8.3 % (0.0-12.0); Neutrophils # (auto) 3.9 uL; Neutrophils % (auto) 68.3 % (37.0-80.0); Platelet Count (auto) 202 10^3/uL (140-450); Red Cell Distribution Width 19.8 % (11.6-16.0); White Blood Cell 5.7 10^3/uL (4.4-10.8)
[2016-09-20] MEDS ORDERED: BUPIVACAINE W/ EPINEPH 0.25% INJ 50ML MDV ONE (06:56)
[2016-09-20] MEDS ORDERED: BUPIVACAINE 0.25% INJ 50ML VIAL ONE (06:56)
[2016-09-20] MEDS ORDERED: POVIDONE IODINE 10 % TOPICAL OINT 30GM TOP ONE (06:56)
[2016-09-20] MEDS ORDERED: LIDOCAINE W/ EPINEPHRINE 1 % INJ 30ML ONE (06:56)
[2016-09-20] MEDS ORDERED: ceFAZolin 1GM VL ONE (06:56)
[2016-09-20] MEDS ORDERED: HEPARIN 1,000 UNITS/ml 1ML VIAL ONE (06:58)
[2016-09-20] MEDS ORDERED: HEPARIN SODIUM (PORCINE) 5000 UNITS/ML 1ML VIAL ONE (06:58)
[2016-09-20] MEDS ORDERED: ceFAZolin 1GM/50ML D5W 50 ML IV ONE (07:00)
[2016-09-20 07:08] LABS: INR 1.15 (0.9-1.15); Partial Thromboplastin Time 30.3 sec (22.64-33.71); Prothrombin Time 12.5 sec (9.37-12.3)
[2016-09-20] MEDS: INSULIN 70/30 1unit/0.01ml Susp (100units/ml) SC SCH ×2 (07:26→17:56)
[2016-09-20 07:38] LABS: Potassium 3.8 mmol/L (3.5-5.1)
[2016-09-20 07:55] LABS: Albumin 3.9 g/dL (3.4-5.0); BUN/Creatinine Ratio 22.6; Bilirubin, Total 1.4 mg/dL (0.2-1.0); Calcium 9.6 mg/dL (8.5-10.1); Total Protein 7.5 g/dL (6.4-8.2)
[2016-09-20] MEDS ORDERED: HYDROmorphone HCL 2 MG/ML VL IV PRN (08:30)
[2016-09-20] MEDS ORDERED: METOCLOPRAMIDE HCL 5MG/ml INJ 2ml VIAL IV ONE (08:30)
[2016-09-20] MEDS ORDERED: ACCU-CHEK COMFORT CURVE STRIP VI ONE (08:30)
[2016-09-20] MEDS ORDERED: ENOXAPARIN SOD 30 MG/0.3 ML SYRINGE SC SCH (10:00)
[2016-09-20] MEDS: CARVEDILOL 12.5 MG TAB PO SCH ×2 (10:00→22:00)
[2016-09-20] MEDS: FENOFIBRATE 160MG PO SCH (10:00)
[2016-09-20] MEDS: GABAPENTIN 300 MG CAP PO SCH ×2 (10:02→22:39)
[2016-09-20] MEDS: PANTOPRAZOLE 40 MG TAB PO SCH (10:03)
[2016-09-20] MEDS: ISOSORBIDE MONONITRATE 60 MG TAB PO SCH (10:03)
[2016-09-20] MEDS: FERROUS SULFATE 325 MG TAB PO SCH (10:04)
[2016-09-20] MEDS: ASPirin 81 mg TAB PO SCH (10:04)
[2016-09-20] MEDS: ALLOPURINOL 100 MG TAB PO SCH (10:05)
[2016-09-20] MEDS: amLODIPine BESYLATE 5 MG TAB PO SCH (10:05)
[2016-09-20] MEDS: METOLAZONE 5 MG TAB PO SCH (10:05)
[2016-09-20] MEDS: HYDROcodone-ACET 5/325MG TAB PO PRN ×2 (10:07→14:23)
[2016-09-20 12:36] VITALS: BP 133/80
[2016-09-20 15:53] LABS: Uric Acid 9.5 mg/dL (3.5-7.2)
[2016-09-20 16:40] VITALS: BP 128/64
[2016-09-20] MEDS ORDERED: HYDROcodone-ACET 5/325MG TAB PO PRN (18:15)
[2016-09-20 20:00] VITALS: BP 142/68
[2016-09-20 21:39] VITALS: BP 142/59
[2016-09-20] MEDS: ATORVASTATIN 20 MG TAB PO SCH (22:39)
[2016-09-21] VITALS (7 sets, daily range): BP systolic 128–143; BP diastolic 59–82
[2016-09-21 06:10] LABS: Basophils # (auto) 0 uL; Basophils % (auto) 0.2 % (0.0-2.0); CONDITION Y; DEFINITIVE SEE PRINTOUT; Eosinophils # (auto) 0 uL; Hematocrit 28.6 % (41.0-53.0); Hemoglobin 9.5 g/dL (13.5-17.5); Lymphocytes # (auto) 0.5 uL; Lymphocytes % (auto) 12.2 % (10.0-50.0); Mean Corpuscular Hemoglobin 29.7 pg (28.0-32.0); Mean Corpuscular Hgb Conc. 33.3 g/dL (32.0-36.0); Mean Corpuscular Volume 89.1 fL (80.0-100.0); Mean Platelet Volume 9.7 fL (7.4-10.4); Monocytes # (auto) 0.3 uL; Monocytes % (auto) 7.3 % (0.0-12.0); Neutrophils # (auto) 3.5 uL; Neutrophils % (auto) 80.3 % (37.0-80.0); Platelet Count (auto) 197 10^3/uL (140-450); Red Cell Distribution Width 19.2 % (11.6-16.0); White Blood Cell 4.4 10^3/uL (4.4-10.8)
[2016-09-21 06:21] LABS: Potassium 4.5 mmol/L (3.5-5.1)
[2016-09-21] MEDS: ACCU-CHEK COMFORT CURVE STRIP VI SCH ×4 (06:21→21:49)
[2016-09-21] MEDS: BUMETANIDE (0.25MG/ML) 4 ML VIAL IV SCH (06:22)
[2016-09-21] MEDS: SODIUM CHLOR 0.9% PF (SALINE LOCK) 10ML VIAL IV SCH ×3 (06:22→22:00)
[2016-09-21] MEDS: hydrALAZINE HCL 25 MG TAB PO SCH ×3 (06:22→21:48)
[2016-09-21] MEDS: LEVOTHYROXINE SODIUM 25 MCG TAB PO SCH (06:22)
[2016-09-21] MEDS: InsuLIN REG 1unit/0.01ml Soln (100units/ml) SC SCH ×4 (06:23→22:00)
[2016-09-21 06:38] LABS: Albumin 3.8 g/dL (3.4-5.0); BUN/Creatinine Ratio 23.7; Bilirubin, Total 0.8 mg/dL (0.2-1.0); Calcium 8.8 mg/dL (8.5-10.1); Total Protein 7.7 g/dL (6.4-8.2)
[2016-09-21] MEDS ORDERED: EPOETIN ALFA 10,000 UNIT/1 ML VIAL IV ONE (08:00)
[2016-09-21] MEDS ORDERED: SODIUM CHL 0.9% 1000 ML BAG XX ONE (08:00)
[2016-09-21] MEDS: INSULIN 70/30 1unit/0.01ml Susp (100units/ml) SC SCH ×2 (08:00→18:07)
[2016-09-21] MEDS: FENOFIBRATE 160MG PO SCH (10:00)
[2016-09-21] MEDS: ASPirin 81 mg TAB PO SCH (10:08)
[2016-09-21] MEDS: GABAPENTIN 300 MG CAP PO SCH ×2 (10:08→21:48)
[2016-09-21] MEDS: FERROUS SULFATE 325 MG TAB PO SCH (10:09)
[2016-09-21] MEDS: ISOSORBIDE MONONITRATE 60 MG TAB PO SCH (10:10)
[2016-09-21] MEDS: amLODIPine BESYLATE 5 MG TAB PO SCH (10:12)
[2016-09-21] MEDS: CARVEDILOL 12.5 MG TAB PO SCH ×2 (10:14→21:48)
[2016-09-21] MEDS: ALLOPURINOL 100 MG TAB PO SCH (10:15)
[2016-09-21] MEDS: PANTOPRAZOLE 40 MG TAB PO SCH (10:16)
[2016-09-21] MEDS: METOLAZONE 5 MG TAB PO SCH (10:17)
[2016-09-21] MEDS: ATORVASTATIN 20 MG TAB PO SCH (21:48)
[2016-09-22 05:25] VITALS: BP 126/81
[2016-09-22] MEDS: hydrALAZINE HCL 25 MG TAB PO SCH ×2 (06:19→14:00)
[2016-09-22] MEDS: SODIUM CHLOR 0.9% PF (SALINE LOCK) 10ML VIAL IV SCH ×2 (06:19→14:00)
[2016-09-22] MEDS: LEVOTHYROXINE SODIUM 25 MCG TAB PO SCH (06:20)
[2016-09-22 06:27] LABS: Hemoglobin 9.4 g/dL (13.5-17.5)
[2016-09-22 06:47] LABS: Calcium 8.2 mg/dL (8.5-10.1)
[2016-09-22 06:49] LABS: BUN/Creatinine Ratio 23.1
[2016-09-22] MEDS: ACCU-CHEK COMFORT CURVE STRIP VI SCH ×2 (06:56→11:30)
[2016-09-22] MEDS: InsuLIN REG 1unit/0.01ml Soln (100units/ml) SC SCH ×2 (06:56→11:30)
[2016-09-22] MEDS: INSULIN 70/30 1unit/0.01ml Susp (100units/ml) SC SCH (08:00)
[2016-09-22 09:12] VITALS: BP 118/62
[2016-09-22] MEDS: ISOSORBIDE MONONITRATE 60 MG TAB PO SCH (10:00)
[2016-09-22] MEDS: FENOFIBRATE 160MG PO SCH (10:00)
[2016-09-22] MEDS ORDERED: MORPHINE SULF INJ 2 MG/ML SYRINGE 1ML IV PRN (10:00)
[2016-09-22] MEDS ORDERED: TEMAZEPAM 15 MG CAP PO PRN (10:00)
[2016-09-22] MEDS ORDERED: MORPHINE SULFATE 4 MG/ML SYRG IV PRN (10:00)
[2016-09-22] MEDS ORDERED: traMADol HCL 50 MG TAB PO PRN (10:00)
[2016-09-22] MEDS: CARVEDILOL 12.5 MG TAB PO SCH (10:00)
[2016-09-22] MEDS: ALLOPURINOL 100 MG TAB PO SCH (10:00)
[2016-09-22] MEDS ORDERED: LORazepam 0.5 MG TAB PO PRN (10:00)
[2016-09-22] MEDS: amLODIPine BESYLATE 5 MG TAB PO SCH (10:00)
[2016-09-22] MEDS ORDERED: LACTULOSE 20Gm/30ML SOLN PO ONE (10:15)
[2016-09-22] MEDS: ASPirin 81 mg TAB PO SCH (10:55)
[2016-09-22] MEDS: FERROUS SULFATE 325 MG TAB PO SCH (10:56)
[2016-09-22] MEDS: PANTOPRAZOLE 40 MG TAB PO SCH (10:56)
[2016-09-22] MEDS: METOLAZONE 5 MG TAB PO SCH (10:58)
[2016-09-22 17:34] VITALS: BP 129/66
[2016-09-22] MEDS ORDERED: GABAPENTIN 300 MG CAP PO SCH (22:00)
== END 2016-09-22 17:40 | disposition home or self-care (01) | DRG 291 ==
LOC: ER 12:07 → TELE 12:08 → TELE-E-ADS 15:53 → TELE-WESTW 17:41
PROVIDERS: ADMIT Internal Medicine; ATTEND Internal Medicine
PROC: 5A09357 Assistance with Respiratory Ventilation, Less than 24 Consecutive Hours, Continuous Positive Airway Pressure (ICD-10-PCS; 2016-09-14)
PROC: 5A1D60Z (ICD-10-PCS; 2016-09-20)
PROC: 02HV33Z Insertion of Infusion Device into Superior Vena Cava, Percutaneous Approach (ICD-10-PCS; principal; 2016-09-20 07:30)
DX: I13.2 Hypertensive heart and chronic kidney disease with heart failure and with stage 5 chronic kidney disease, or end stage renal disease (principal); N18.6 End stage renal disease; J96.00 Acute respiratory failure, unspecified whether with hypoxia or hypercapnia; I50.43 Acute on chronic combined systolic (congestive) and diastolic (congestive) heart failure; Z68.42 Body mass index [BMI] 45.0-49.9, adult; N17.9 Acute kidney failure, unspecified; E11.21 Type 2 diabetes mellitus with diabetic nephropathy; E11.22 Type 2 diabetes mellitus with diabetic chronic kidney disease; M19.90 Unspecified osteoarthritis, unspecified site; E03.9 Hypothyroidism, unspecified; D63.8 Anemia in other chronic diseases classified elsewhere; E66.01 Morbid (severe) obesity due to excess calories; I25.10 Atherosclerotic heart disease of native coronary artery without angina pectoris; E78.5 Hyperlipidemia, unspecified; M10.9 Gout, unspecified; N18.9 Chronic kidney disease, unspecified; E11.65 Type 2 diabetes mellitus with hyperglycemia; G47.30 Sleep apnea, unspecified; K59.00 Constipation, unspecified; I25.5 Ischemic cardiomyopathy; Z82.49 Family history of ischemic heart disease and other diseases of the circulatory system; Z95.1 Presence of aortocoronary bypass graft; Z83.3 Family history of diabetes mellitus; I25.2 Old myocardial infarction; Z90.89 Acquired absence of other organs; Z80.9 Family history of malignant neoplasm, unspecified; Z95.810 Presence of automatic (implantable) cardiac defibrillator; Z79.899 Other long term (current) drug therapy; Z79.82 Long term (current) use of aspirin; Z88.8 Allergy status to other drugs, medicaments and biological substances
CPT/HCPCS: 36415; 71010; 76775; 80048; 80053; 80061; 81001; 82550; 82962; 83036; 83735; 83880; 83970; 84100; 84439; 84443; 84481; 84484; 84550; 85014; 85018; 85025; 85610; 85730; 86706; 86803; 86850; 86900; 86901; 87340; 90935; 93005; 94660; J0330; J0690; J0885; J1642; J1815; J2001; J2250; J2704; J3430; J3490

== ENCOUNTER 2016-10-26 00:05 | Emergency (ER) | payer OTHER ==
[~2016-10-26] VITALS: Ht 170.2 cm; Wt 113.4 kg
[~2016-10-26 00:05] MED LIST changes: -ACET325T82 PO; +CLOP75TA28 PO; -GLIP-204 PO
[2016-10-26 00:33] LABS: Basophils # (auto) 0.1 uL; Basophils % (auto) 1.3 % (0.0-2.0); Eosinophils # (auto) 0.1 uL; Eosinophils % (auto) 1.4 % (0.0-7.0); Hematocrit 33.5 % (41.0-53.0); Hemoglobin 10.9 g/dL (13.5-17.5); Lymphocytes # (auto) 1.2 uL; Lymphocytes % (auto) 20.2 % (10.0-50.0); Mean Corpuscular Hemoglobin 29.8 pg (28.0-32.0); Mean Corpuscular Hgb Conc. 32.7 g/dL (32.0-36.0); Mean Corpuscular Volume 91.1 fL (80.0-100.0); Mean Platelet Volume 8.6 fL (6.9-10.8); Monocytes # (auto) 0.5 uL; Monocytes % (auto) 8.4 % (0.0-12.0); Neutrophils # (auto) 4.1 uL; Neutrophils % (auto) 68.7 % (37.0-80.0); Nucleated Red Blood Cells % 0.1 %; Platelet Count (auto) 148 10^3/uL (140-450); Red Cell Distribution Width 18.1 % (11.8-14.3)
[2016-10-26 00:54] LABS: Albumin 3.8 g/dL (3.4-5.0); BUN/Creatinine Ratio 9.5; Calcium 8.3 mg/dL (8.5-10.1); Potassium 4.1 mmol/L (3.5-5.1)
[2016-10-26 00:57] LABS: Bilirubin, Total 0.6 mg/dL (0.2-1.0); Total Protein 7.8 g/dL (6.4-8.2)
[2016-10-26 01:08] LABS: B-Type Natriuretic Peptide 1292.48 pg/mL (0-100)
[2016-10-26 01:09] LABS: Temperature: 22.7 C (20.0-25.0)
[2016-10-26] MEDS ORDERED: LORazepam 2MG/ML-1ML VIAL IV ONE (04:15)
[2016-10-26 12:39] VITALS: BP 149/74
== END 2016-10-26 16:04 | disposition home or self-care (01) ==
LOC: ER 00:07
DX: I13.2 Hypertensive heart and chronic kidney disease with heart failure and with stage 5 chronic kidney disease, or end stage renal disease (principal); N18.6 End stage renal disease; R60.9 Edema, unspecified; D63.1 Anemia in chronic kidney disease; I50.9 Heart failure, unspecified; E11.22 Type 2 diabetes mellitus with diabetic chronic kidney disease; M19.90 Unspecified osteoarthritis, unspecified site; I25.810 Atherosclerosis of coronary artery bypass graft(s) without angina pectoris; Z95.1 Presence of aortocoronary bypass graft; M10.9 Gout, unspecified; E78.5 Hyperlipidemia, unspecified; I25.2 Old myocardial infarction; E07.9 Disorder of thyroid, unspecified; Z90.49 Acquired absence of other specified parts of digestive tract; Z95.0 Presence of cardiac pacemaker; Z98.61 Coronary angioplasty status; Z99.2 Dependence on renal dialysis
CPT/HCPCS: 36415; 71020; 80053; 83880; 84484; 85025; 85379; 93005; 96374; 99285; J2060

== ENCOUNTER 2017-04-28 20:53 | Inpatient (IN) | payer MEDICARE, OTHER ==
[~2017-04-28] VITALS: Ht 170.2 cm; Wt 116.9 kg
[~2017-04-28 20:53] MED LIST changes: -AMLO10TA2 PO; -HYDR-2652 PO; +HYDR50TA15 PO
[2017-04-28 22:13] LABS: Basophils # (auto) 0.1 uL; Eosinophils # (auto) 0.1 uL; Eosinophils % (auto) 1.1 % (0.0-7.0); Hemoglobin 11.3 g/dL (13.5-17.5); Lymphocytes # (auto) 1.2 uL; Mean Corpuscular Hemoglobin 31.8 pg (28.0-32.0); Mean Corpuscular Hgb Conc. 33.2 g/dL (32.0-36.0); Mean Corpuscular Volume 95.7 fL (80.0-100.0); Monocytes # (auto) 0.6 uL; Monocytes % (auto) 10.8 % (0.0-12.0); Neutrophils # (auto) 3.9 uL; Neutrophils % (auto) 66.1 % (37.0-80.0); Nucleated Red Blood Cells % 0.1 %; Platelet Count (auto) 211 10^3/uL (140-450); Red Blood Cells 3.55 10^6/uL (4.5-5.90); Red Cell Distribution Width 15.3 % (11.8-14.3); White Blood Cell 5.9 10^3/uL (4.4-10.8)
[2017-04-28 22:35] LABS: Albumin 3.6 g/dL (3.4-5.0); BUN/Creatinine Ratio 6.4; Bilirubin, Total 0.7 mg/dL (0.2-1.0); Calcium 8.2 mg/dL (8.5-10.1); Magnesium 2.2 mg/dL (1.6-2.6); Potassium 3.7 mmol/L (3.5-5.1); Total Protein 7.8 g/dL (6.4-8.2)
[2017-04-29 00:01] LABS: INR 1.08 (0.9-1.15); Partial Thromboplastin Time 27.6 sec (22.64-33.71); Prothrombin Time 11.8 sec (9.37-12.3)
[2017-04-29 00:53] LABS: Urine Bacteria MOD /hpf (None Seen); Urine Blood 2+ /uL (Negative); Urine Hyaline Cast FEW /lpf (0 - 2); Urine Specific Gravity 1.024 (1.001-1.035); Urine WBC 270 /hpf (0 - 3)
[2017-04-29] MEDS ORDERED: ACETAMINOPHEN 325 MG TAB PO PRN (06:00)
[2017-04-29] MEDS ORDERED: TEMAZEPAM 15 MG CAP PO PRN (06:00)
[2017-04-29] MEDS ORDERED: DEXTROSE (50%) 50ML SYRG IV PRN (06:00)
[2017-04-29] MEDS: ACCU-CHEK COMFORT CURVE STRIP VI SCH ×3 (06:00→17:58)
[2017-04-29] MEDS ORDERED: NITROGLYCERIN 0.4 MG SL TAB SL PRN (06:00)
[2017-04-29] MEDS ORDERED: HYDROcodone-ACET 5/325MG TAB PO PRN (06:00)
[2017-04-29] MEDS ORDERED: MORPHINE SULFATE 4 MG/ML SYR/VIAL IV PRN (06:00)
[2017-04-29] MEDS ORDERED: ONDANSETRON HCL 4 MG/2 ML VIAL IV PRN (06:00)
[2017-04-29] MEDS ORDERED: cefTRIAXone 1GM/10ml IVPUSH 10 ML IV ONE (06:30)
[2017-04-29] MEDS: InsuLIN REG 1unit/0.01ml Soln (100units/ml) SC SCH ×3 (07:27→17:58)
[2017-04-29] MEDS: BUMETANIDE 1 MG TAB PO SCH ×2 (08:07→17:58)
[2017-04-29] MEDS: LEVOTHYROXINE SODIUM 25 MCG TAB PO SCH (08:08)
[2017-04-29 09:22] VITALS: BP 127/53
[2017-04-29 09:36] VITALS: BP 127/53
[2017-04-29] MEDS ORDERED: LORA-655 PO (09:45)
[2017-04-29] MEDS ORDERED: ACET-1156 PO (09:45)
[2017-04-29] MEDS ORDERED: ZOLP5TAB5 PO (09:45)
[2017-04-29] MEDS ORDERED: MULT-228 PO (09:45)
[2017-04-29] MEDS ORDERED: ENOXAPARIN SOD 30 MG/0.3 ML SYRINGE SC SCH (10:00)
[2017-04-29] MEDS ORDERED: CARVEDILOL 12.5 MG TAB PO SCH (10:00)
[2017-04-29] MEDS ORDERED: ISOSORBIDE MONONITRATE 60 MG TAB PO SCH (10:00)
[2017-04-29] MEDS: PANTOPRAZOLE 40 MG TAB PO SCH (10:25)
[2017-04-29] MEDS: ALLOPURINOL 100 MG TAB PO SCH (10:25)
[2017-04-29] MEDS: CLOPIDOGREL BISULFATE 75 MG TAB PO SCH (10:25)
[2017-04-29] MEDS: GABAPENTIN 300 MG CAP PO SCH ×2 (10:25→22:26)
[2017-04-29] MEDS: hydrALAZINE HCL 25 MG TAB PO SCH ×2 (10:28→22:26)
[2017-04-29 11:43] VITALS: BP 103/52
[2017-04-29 12:03] LABS: Cholesterol 81 mg/dL (< 200); HDL Cholesterol 10 mg/dL (40-59); LDL Cholesterol 57 mg/dL (< 100); Triglycerides 138 mg/dL (< 150)
[2017-04-29 17:00] VITALS: BP 113/51
[2017-04-29] MEDS ORDERED: ATORVASTATIN 20 MG TAB PO SCH (22:00)
[2017-04-29] MEDS: CARVEDILOL 12.5 MG TAB PO SCH (22:25)
[2017-04-29 23:11] VITALS: BP 119/57
[2017-04-30] MEDS: ACCU-CHEK COMFORT CURVE STRIP VI SCH ×3 (00:16→11:42)
[2017-04-30] MEDS: InsuLIN REG 1unit/0.01ml Soln (100units/ml) SC SCH ×3 (00:17→11:42)
[2017-04-30 04:21] VITALS: BP 119/57
[2017-04-30 05:29] VITALS: BP 101/55
[2017-04-30] MEDS: BUMETANIDE 1 MG TAB PO SCH (06:22)
[2017-04-30] MEDS: LEVOTHYROXINE SODIUM 25 MCG TAB PO SCH (06:24)
[2017-04-30 07:31] LABS: Basophils # (auto) 0 uL; Basophils % (auto) 0.7 % (0.0-2.0); Eosinophils # (auto) 0.1 uL; Eosinophils % (auto) 1.4 % (0.0-7.0); Hematocrit 32.6 % (41.0-53.0); Lymphocytes # (auto) 1.5 uL; Lymphocytes % (auto) 27.3 % (10.0-50.0); Mean Corpuscular Hemoglobin 32.5 pg (28.0-32.0); Mean Corpuscular Hgb Conc. 33.6 g/dL (32.0-36.0); Mean Corpuscular Volume 96.6 fL (80.0-100.0); Monocytes # (auto) 0.7 uL; Monocytes % (auto) 12.3 % (0.0-12.0); Neutrophils # (auto) 3.2 uL; Neutrophils % (auto) 58.3 % (37.0-80.0); Nucleated Red Blood Cells % 0.1 %; Platelet Count (auto) 211 10^3/uL (140-450); Red Blood Cells 3.38 10^6/uL (4.5-5.90); Red Cell Distribution Width 15.5 % (11.8-14.3); White Blood Cell 5.6 10^3/uL (4.4-10.8)
[2017-04-30 07:38] LABS: Albumin 3.2 g/dL (3.4-5.0); Potassium 4.4 mmol/L (3.5-5.1)
[2017-04-30 07:41] LABS: BUN/Creatinine Ratio 10.7
[2017-04-30 07:44] LABS: Bilirubin, Total 0.7 mg/dL (0.2-1.0); Total Protein 7.1 g/dL (6.4-8.2)
[2017-04-30 08:00] VITALS: BP 115/57
[2017-04-30] MEDS ORDERED: cefTRIAXone 1GM/10ml IVPUSH 10 ML IV SCH (09:00)
[2017-04-30] MEDS: ALLOPURINOL 100 MG TAB PO SCH (09:43)
[2017-04-30] MEDS: PANTOPRAZOLE 40 MG TAB PO SCH (09:43)
[2017-04-30] MEDS: CLOPIDOGREL BISULFATE 75 MG TAB PO SCH (09:43)
[2017-04-30] MEDS: GABAPENTIN 300 MG CAP PO SCH (09:43)
[2017-04-30] MEDS: CARVEDILOL 12.5 MG TAB PO SCH ×2 (09:48→10:47)
[2017-04-30] MEDS: hydrALAZINE HCL 25 MG TAB PO SCH (09:48)
[2017-04-30] MEDS ORDERED: LOSARTAN POTASSIUM 50 MG TAB PO SCH (10:00)
[2017-04-30] MEDS ORDERED: LISINOPRIL 10 MG TAB PO SCH (10:00)
[2017-04-30 11:53] VITALS: BP 112/58
[2017-04-30 13:47] VITALS: BP 112/58
[2017-05-01] MEDS ORDERED: LOSARTAN POTASSIUM 25 MG TAB PO SCH (10:00)
== END 2017-04-30 15:15 | disposition home or self-care (01) | DRG 291 ==
LOC: ER 20:53 → TELE-WESTW 20:54
PROVIDERS: ADMIT Nurse Practitioner; ATTEND Nurse Practitioner
DX: I13.2 Hypertensive heart and chronic kidney disease with heart failure and with stage 5 chronic kidney disease, or end stage renal disease (principal); I50.43 Acute on chronic combined systolic (congestive) and diastolic (congestive) heart failure; N17.9 Acute kidney failure, unspecified; E11.22 Type 2 diabetes mellitus with diabetic chronic kidney disease; E11.40 Type 2 diabetes mellitus with diabetic neuropathy, unspecified; N18.6 End stage renal disease; N39.0 Urinary tract infection, site not specified; R55 Syncope and collapse; D63.8 Anemia in other chronic diseases classified elsewhere; E03.9 Hypothyroidism, unspecified; E66.01 Morbid (severe) obesity due to excess calories; E78.00 Pure hypercholesterolemia, unspecified; E78.5 Hyperlipidemia, unspecified; G47.33 Obstructive sleep apnea (adult) (pediatric); I25.119 Atherosclerotic heart disease of native coronary artery with unspecified angina pectoris; K05.6 Periodontal disease, unspecified; M10.9 Gout, unspecified; M19.90 Unspecified osteoarthritis, unspecified site; Z82.49 Family history of ischemic heart disease and other diseases of the circulatory system; Z83.3 Family history of diabetes mellitus; Z95.1 Presence of aortocoronary bypass graft; I25.2 Old myocardial infarction; Z99.2 Dependence on renal dialysis; Z79.899 Other long term (current) drug therapy; Z88.8 Allergy status to other drugs, medicaments and biological substances
CPT/HCPCS: 36415; 70450; 71045; 80053; 80061; 81001; 82962; 83036; 83735; 83880; 84443; 84484; 85025; 85610; 85730; 87081; 87086; 93005; 93306; 93886; 95819; 96374; J1815

== ENCOUNTER 2018-03-18 12:04 | Emergency (ER) | payer MEDICARE, OTHER ==
[~2018-03-18] VITALS: Ht 170.2 cm; Wt 117.9 kg
[~2018-03-18 12:04] MED LIST changes: +ACET-1156 PO; +LORA-655 PO; +MULT-228 PO; +ZOLP5TAB5 PO
[2018-03-18 12:13] VITALS: BP 135/59
== END 2018-03-18 14:47 | disposition home or self-care (01) ==
LOC: ER 12:08
DX: J02.9 Acute pharyngitis, unspecified (principal); M19.90 Unspecified osteoarthritis, unspecified site; I25.810 Atherosclerosis of coronary artery bypass graft(s) without angina pectoris; E78.5 Hyperlipidemia, unspecified; I25.2 Old myocardial infarction; E11.22 Type 2 diabetes mellitus with diabetic chronic kidney disease; I13.2 Hypertensive heart and chronic kidney disease with heart failure and with stage 5 chronic kidney disease, or end stage renal disease; N18.6 End stage renal disease; I50.9 Heart failure, unspecified; Z99.2 Dependence on renal dialysis; Z86.2 Personal history of diseases of the blood and blood-forming organs and certain disorders involving the immune mechanism; Z98.61 Coronary angioplasty status; Z79.899 Other long term (current) drug therapy; Z88.8 Allergy status to other drugs, medicaments and biological substances
CPT/HCPCS: 70360; 93005

== ENCOUNTER 2018-04-29 14:45 | Emergency (ER) | payer MEDICARE, OTHER ==
[~2018-04-29] VITALS: Ht 170.2 cm; Wt 117.9 kg
[2018-04-29 15:34] LABS: Basophils # (auto) 0 uL; Basophils % (auto) 0.8 % (0.0-2.0); Eosinophils # (auto) 0.2 uL; Eosinophils % (auto) 4.8 % (0.0-7.0); Hematocrit 25.8 % (41.0-53.0); Hemoglobin 8.4 g/dL (13.5-17.5); Lymphocytes # (auto) 1.2 uL; Lymphocytes % (auto) 24.3 % (10.0-50.0); Mean Corpuscular Hemoglobin 30.4 pg (28.0-32.0); Mean Corpuscular Hgb Conc. 32.6 g/dL (32.0-36.0); Mean Corpuscular Volume 93.5 fL (80.0-100.0); Monocytes # (auto) 0.5 uL; Neutrophils # (auto) 3.1 uL; Neutrophils % (auto) 61.1 % (37.0-80.0); Nucleated Red Blood Cells % 0.2 %; Platelet Count (auto) 217 10^3/uL (140-450); Red Blood Cells 2.76 10^6/uL (4.5-5.90); Red Cell Distribution Width 17.5 % (11.8-14.3)
[2018-04-29 15:49] LABS: Albumin 2.5 g/dL (3.4-5.0); Calcium 7.9 mg/dL (8.5-10.1); Potassium 4.3 mmol/L (3.5-5.1)
[2018-04-29 15:52] LABS: BUN/Creatinine Ratio 6.8; Bilirubin, Total 0.4 mg/dL (0.2-1.0)
[2018-04-29 16:07] LABS: INR 3.7 (0.9-1.15); Partial Thromboplastin Time 57.6 sec (23.78-33.04); Prothrombin Time 36.8 sec (9.27-12.13)
[2018-04-29 16:35] LABS: Urine Bacteria NONE SEEN /hpf (None Seen); Urine Blood 3+ /uL (Negative); Urine WBC 20 /hpf (0 - 3)
[2018-04-29 16:49] LABS: Urine Specific Gravity 1.019 (1.001-1.035)
[2018-04-29 17:20] VITALS: BP 147/69
== END 2018-04-29 17:29 | disposition home or self-care (01) ==
LOC: ER 14:53
DX: N39.0 Urinary tract infection, site not specified (principal); R79.1 Abnormal coagulation profile; E11.22 Type 2 diabetes mellitus with diabetic chronic kidney disease; I13.0 Hypertensive heart and chronic kidney disease with heart failure and stage 1 through stage 4 chronic kidney disease, or unspecified chronic kidney disease; I50.9 Heart failure, unspecified; N18.4 Chronic kidney disease, stage 4 (severe); E78.5 Hyperlipidemia, unspecified; M19.90 Unspecified osteoarthritis, unspecified site; I25.810 Atherosclerosis of coronary artery bypass graft(s) without angina pectoris; Z88.8 Allergy status to other drugs, medicaments and biological substances; Z79.899 Other long term (current) drug therapy; Z79.4 Long term (current) use of insulin; Z79.82 Long term (current) use of aspirin; Z95.1 Presence of aortocoronary bypass graft; Z90.49 Acquired absence of other specified parts of digestive tract; Z98.61 Coronary angioplasty status; Z79.01 Long term (current) use of anticoagulants
CPT/HCPCS: 36415; 80053; 81001; 85025; 85610; 85730; 93005

== ENCOUNTER 2019-03-31 17:52 | Emergency (ER) | payer MEDICARE, OTHER ==
[~2019-03-31] VITALS: Ht 170.2 cm; Wt 117.9 kg
[2019-03-31 18:15] VITALS: BP 166/73
== END 2019-03-31 19:20 | disposition left against medical advice (07) ==
LOC: ER 17:52
DX: R10.9 Unspecified abdominal pain (principal); M54.9 Dorsalgia, unspecified; Z53.21 Procedure and treatment not carried out due to patient leaving prior to being seen by health care provider

== ENCOUNTER 2019-06-13 11:40 | Inpatient (IN) | payer MEDICARE, OTHER ==
[~2019-06-13] VITALS: Ht 170.2 cm; Wt 116.0 kg
[2019-06-13 12:32] LABS: Basophils # (auto) 0 10 ^3/uL (0-0.2); Basophils % (auto) 0.7 % (0.0-2.0); Eosinophils # (auto) 0 10 ^3/uL (0-0.8); Eosinophils % (auto) 1.1 % (0.0-7.0); Hematocrit 33.3 % (41.0-53.0); Hemoglobin 10.9 g/dL (13.5-17.5); Lymphocytes # (auto) 0.9 10 ^3/uL (0.4-5.4); Mean Corpuscular Hemoglobin 31.3 pg (28.0-32.0); Mean Corpuscular Hgb Conc. 32.6 g/dL (32.0-36.0); Mean Corpuscular Volume 95.9 fL (80.0-100.0); Monocytes # (auto) 0.3 10 ^3/uL (0-1.3); Neutrophils # (auto) 2.3 10 ^3/uL (1.6-8.6); Neutrophils % (auto) 65.2 % (37.0-80.0); Platelet Count (auto) 162 10^3/uL (140-450); Red Blood Cells 3.47 10^6/uL (4.5-5.90); Red Cell Distribution Width 16.8 % (11.8-14.3); White Blood Cell 3.6 10^3/uL (4.4-10.8)
[2019-06-13 12:54] LABS: Albumin 3.3 g/dL (3.4-5.0); Anion Gap 7 (5-15); Blood Urea Nitrogen 40 mg/dL (7-18); Calcium 8.5 mg/dL (8.5-10.1); Carbon Dioxide 25 mmol/L (21-32); Chloride 106 mmol/L (98-107); Glucose 166 mg/dL (74-106); Magnesium 2.4 mg/dL (1.6-2.6); Potassium 4.3 mmol/L (3.5-5.1); Sodium 138 mmol/L (136-145)
[2019-06-13 13:05] LABS: Alanine Aminotransferase 22 U/L (16-61); Alkaline Phosphatase 124 U/L (45-117); Aspartate Aminotransferase 18 U/L (15-37); BUN/Creatinine Ratio 8.3; Bilirubin, Total 0.6 mg/dL (0.2-1.0); GFR African American 16 mL/min; GFR Non-African American 13 mL/min; Total Protein 7.6 g/dL (6.4-8.2)
[2019-06-13] MEDS ORDERED: NITROGLYCERIN 0.4 MG SL TAB SL PRN (13:15)
[2019-06-13] MEDS ORDERED: MORPHINE SULF INJ 2 MG/ML SYRINGE 1ML IV PRN (13:15)
[2019-06-13] MEDS ORDERED: LORazepam 0.5 MG TAB PO PRN (14:30)
[2019-06-13] MEDS ORDERED: ACETAMINOPHEN 325 MG TAB PO PRN (14:30)
[2019-06-13] MEDS ORDERED: traMADol HCL 50 MG TAB PO PRN (14:30)
[2019-06-13 16:39] LABS: Alcohol, Urine < 3.0 mg/dL (0-5); Amphetamine Screen, Urine NEGATIVE (NEGATIVE); Barbiturate Scree,Urine NEGATIVE (NEGATIVE); Benzodiazephine Screen, Urine NEGATIVE (NEGATIVE); Cannabinoid Screen, Urine NEGATIVE (NEGATIVE); Cocaine Screen, Urine NEGATIVE (NEGATIVE); Opiate Scree,Urine NEGATIVE (NEGATIVE); Phencyclidine Screen, Urine NEGATIVE (NEGATIVE)
[2019-06-13 16:43] LABS: Urine Bacteria NONE SEEN /hpf (None Seen); Urine Blood 1+ /uL (Negative); Urine Specific Gravity 1.015 (1.001-1.035); Urine WBC 571 /hpf (0 - 3); Urine WBC Clumps PRESENT /hpf (None Seen)
[2019-06-13 17:00] VITALS: BP 159/75
[2019-06-13] MEDS: CLOPIDOGREL BISULFATE 75 MG TAB PO SCH (18:25)
[2019-06-13] MEDS: ATORVASTATIN 20 MG TAB PO SCH (18:25)
[2019-06-13] MEDS: FERROUS SULFATE 325 MG TAB PO SCH (18:25)
[2019-06-13] MEDS: CARVEDILOL 12.5 MG TAB PO SCH (18:26)
[2019-06-13] MEDS ORDERED: CARV3.1240 PO (18:31)
[2019-06-13] MEDS ORDERED: ALLO100T PO (18:31)
[2019-06-13] MEDS ORDERED: ZOLP10TA PO (18:31)
[2019-06-13] MEDS ORDERED: LOSA25TA38 PO (18:31)
[2019-06-13] MEDS ORDERED: GABA300C10 PO (18:31)
[2019-06-13] MEDS ORDERED: FERR-20 PO (18:31)
[2019-06-13] MEDS ORDERED: ALPH600C2 PO (18:42)
[2019-06-13 20:00] VITALS: BP 159/75
[2019-06-13] MEDS: GABAPENTIN 300 MG CAP PO SCH (21:49)
[2019-06-13 22:00] VITALS: BP 122/50
[2019-06-13] MEDS ORDERED: GABAPENTIN 300 MG CAP PO SCH (22:00)
[2019-06-13] MEDS ORDERED: INSULIN 70/30 1unit/0.01ml Susp (100units/ml) SC SCH (22:00)
[2019-06-14 05:00] VITALS: BP 123/58
[2019-06-14] MEDS: GABAPENTIN 300 MG CAP PO SCH ×2 (05:42→11:12)
[2019-06-14] MEDS: LEVOTHYROXINE SODIUM 25 MCG TAB PO SCH (05:43)
[2019-06-14] MEDS ORDERED: CHOLECALCIFEROL (VITD3) 1,000IU=25mCg TAB PO SCH (07:00)
[2019-06-14] MEDS ORDERED: ASPirin-EC 81 mg tab PO SCH (07:00)
[2019-06-14] MEDS ORDERED: FENOFIBRATE 160 MG TAB PO SCH (07:00)
[2019-06-14 08:00] VITALS: BP 152/73
[2019-06-14 09:00] VITALS: BP 152/73
[2019-06-14] MEDS: CARVEDILOL 12.5 MG TAB PO SCH ×2 (09:05→18:18)
[2019-06-14] MEDS: ALLOPURINOL 100 MG TAB PO SCH (09:06)
[2019-06-14] MEDS: MULTIPLE VITAMIN TAB PO SCH (09:06)
[2019-06-14] MEDS: FERROUS SULFATE 325 MG TAB PO SCH (11:12)
[2019-06-14 13:00] VITALS: BP 118/52
[2019-06-14 16:58] VITALS: BP 138/66
[2019-06-14] MEDS: ATORVASTATIN 20 MG TAB PO SCH (18:18)
[2019-06-14] MEDS: CLOPIDOGREL BISULFATE 75 MG TAB PO SCH (18:18)
[2019-06-14 22:00] VITALS: BP 103/45
[2019-06-14] MEDS ORDERED: INSULIN 70/30 1unit/0.01ml Susp (100units/ml) SC SCH (22:00)
[2019-06-15 05:00] VITALS: BP 135/60
[2019-06-15] MEDS: LEVOTHYROXINE SODIUM 25 MCG TAB PO SCH (05:44)
[2019-06-15] MEDS ORDERED: SODIUM CHL 0.9% 1000 ML BAG XX ONE (06:15)
[2019-06-15] MEDS ORDERED: ASPirin-EC 81 mg tab PO SCH (08:00)
[2019-06-15] MEDS ORDERED: CHOLECALCIFEROL (VITD3) 1,000IU=25mCg TAB PO SCH (08:00)
[2019-06-15] MEDS ORDERED: Fenofibrate 160MG TAB PO SCH (08:00)
[2019-06-15 09:27] VITALS: BP 149/75
[2019-06-15] MEDS: GABAPENTIN 300 MG CAP PO SCH (10:37)
[2019-06-15] MEDS: MULTIPLE VITAMIN TAB PO SCH (10:37)
[2019-06-15] MEDS: ALLOPURINOL 100 MG TAB PO SCH (10:39)
[2019-06-15] MEDS: CARVEDILOL 12.5 MG TAB PO SCH (10:39)
[2019-06-15] MEDS ORDERED: VANCOMYCIN 1GM/250ML 250 ML IV ONE (11:45)
[2019-06-15] MEDS ORDERED: CEFTRIAXONE SODIUM 2 GM in D5W 5% 50 ML IV ONE (11:45)
[2019-06-15] MEDS: FERROUS SULFATE 325 MG TAB PO SCH (12:31)
[2019-06-15 13:00] VITALS: BP 129/62
[2019-06-15] MEDS ORDERED: EPOETIN ALFA 10,000 UNIT/1 ML VIAL SC ONE (21:00)
== END 2019-06-15 16:00 | disposition home or self-care (01) | DRG 291 ==
LOC: ER 11:40 → TELE 11:41 → TELE-WESTW 14:51
PROVIDERS: ADMIT Specialist; ATTEND Specialist
PROC: 5A1D70Z Performance of Urinary Filtration, Intermittent, Less than 6 Hours Per Day (ICD-10-PCS; principal; 2019-06-15)
DX: I13.2 Hypertensive heart and chronic kidney disease with heart failure and with stage 5 chronic kidney disease, or end stage renal disease (principal); N18.6 End stage renal disease; I50.43 Acute on chronic combined systolic (congestive) and diastolic (congestive) heart failure; Z68.41 Body mass index [BMI] 40.0-44.9, adult; G45.0 Vertebro-basilar artery syndrome; I67.82 Cerebral ischemia; N39.0 Urinary tract infection, site not specified; D64.9 Anemia, unspecified; E03.9 Hypothyroidism, unspecified; E66.01 Morbid (severe) obesity due to excess calories; E78.5 Hyperlipidemia, unspecified; E11.22 Type 2 diabetes mellitus with diabetic chronic kidney disease; F17.200 Nicotine dependence, unspecified, uncomplicated; F41.9 Anxiety disorder, unspecified; I25.10 Atherosclerotic heart disease of native coronary artery without angina pectoris; J44.9 Chronic obstructive pulmonary disease, unspecified; M10.9 Gout, unspecified; M19.90 Unspecified osteoarthritis, unspecified site; Z79.02 Long term (current) use of antithrombotics/antiplatelets; Z79.82 Long term (current) use of aspirin; Z79.899 Other long term (current) drug therapy; Z82.49 Family history of ischemic heart disease and other diseases of the circulatory system; Z83.3 Family history of diabetes mellitus; Z95.1 Presence of aortocoronary bypass graft; Z95.810 Presence of automatic (implantable) cardiac defibrillator; Z99.2 Dependence on renal dialysis; I95.9 Hypotension, unspecified
CPT/HCPCS: 36415; 70450; 70545; 70551; 71045; 80053; 80307; 81001; 82947; 82962; 83735; 84443; 84484; 85025; 87040; 87081; 87086; 90935; 93005; G0378; J0696; J0885; J7060

== ENCOUNTER 2019-06-25 02:22 | Emergency (ER) | payer MEDICARE, OTHER ==
[~2019-06-25] VITALS: Ht 170.2 cm; Wt 116.6 kg
[~2019-06-25 02:22] MED LIST changes: +ALPH600C2 PO; -BUME1TAB26 PO; -CARV25TA PO; +CARV3.1240 PO; -FER325T PO; +FERR-20 PO; -GABA-339 PO; +GABA300C10 PO; -HYDR50TA15 PO; -ISOS60TA24 PO; +LOSA25TA38 PO; +ZOLP10TA PO; -ZOLP5TAB5 PO
[2019-06-25 03:48] LABS: Basophils # (auto) 0.1 10 ^3/uL (0-0.2); Basophils % (auto) 0.9 % (0.0-2.0); Eosinophils # (auto) 0.1 10 ^3/uL (0-0.8); Eosinophils % (auto) 1.5 % (0.0-7.0); Hematocrit 31.1 % (41.0-53.0); Hemoglobin 10.3 g/dL (13.5-17.5); Lymphocytes # (auto) 1.1 10 ^3/uL (0.4-5.4); Lymphocytes % (auto) 18.6 % (10.0-50.0); Mean Corpuscular Hemoglobin 31.7 pg (28.0-32.0); Mean Corpuscular Hgb Conc. 33.1 g/dL (32.0-36.0); Mean Corpuscular Volume 95.9 fL (80.0-100.0); Monocytes # (auto) 0.5 10 ^3/uL (0-1.3); Monocytes % (auto) 8.7 % (0.0-12.0); Neutrophils # (auto) 4.3 10 ^3/uL (1.6-8.6); Neutrophils % (auto) 70.3 % (37.0-80.0); Platelet Count (auto) 159 10^3/uL (140-450); Red Blood Cells 3.25 10^6/uL (4.5-5.90); Red Cell Distribution Width 16.1 % (11.8-14.3); White Blood Cell 6.1 10^3/uL (4.4-10.8)
[2019-06-25 04:02] LABS: INR 1.19 (0.9-1.15); Partial Thromboplastin Time 29.9 sec (23.64-32.05)
[2019-06-25 04:08] LABS: Albumin 3.5 g/dL (3.4-5.0); Anion Gap 3 (5-15); Blood Urea Nitrogen 42 mg/dL (7-18); Calcium 9.3 mg/dL (8.5-10.1); Carbon Dioxide 30 mmol/L (21-32); Chloride 104 mmol/L (98-107); Glucose 153 mg/dL (74-106); Magnesium 2.3 mg/dL (1.6-2.6); Potassium 5.2 mmol/L (3.5-5.1); Sodium 137 mmol/L (136-145)
[2019-06-25 04:15] LABS: Alanine Aminotransferase 22 U/L (16-61); Alkaline Phosphatase 119 U/L (45-117); Aspartate Aminotransferase 28 U/L (15-37); Bilirubin, Total 0.4 mg/dL (0.2-1.0); GFR African American 14 mL/min; GFR Non-African American 12 mL/min; Total Protein 7.5 g/dL (6.4-8.2)
[2019-06-25 06:32] VITALS: BP 127/47
== END 2019-06-25 06:32 | disposition home or self-care (01) ==
LOC: ER 02:26
DX: E11.22 Type 2 diabetes mellitus with diabetic chronic kidney disease (principal); I13.2 Hypertensive heart and chronic kidney disease with heart failure and with stage 5 chronic kidney disease, or end stage renal disease; I50.9 Heart failure, unspecified; N18.6 End stage renal disease; Z95.1 Presence of aortocoronary bypass graft; Z86.73 Personal history of transient ischemic attack (TIA), and cerebral infarction without residual deficits; Z88.6 Allergy status to analgesic agent; Z88.8 Allergy status to other drugs, medicaments and biological substances; Z90.49 Acquired absence of other specified parts of digestive tract
CPT/HCPCS: 36415; 71045; 80053; 83735; 83880; 84484; 85025; 85610; 85730; 93005

== ENCOUNTER 2019-08-14 10:14 | Emergency (ER) | payer MEDICARE, OTHER ==
[~2019-08-14] VITALS: Ht 170.2 cm; Wt 122.5 kg
[2019-08-14 13:41] VITALS: BP 144/73
== END 2019-08-14 13:54 | disposition home or self-care (01) ==
LOC: ER 10:14
DX: S60.212A Contusion of left wrist, initial encounter (principal); S09.8XXA Other specified injuries of head, initial encounter; E11.22 Type 2 diabetes mellitus with diabetic chronic kidney disease; I13.2 Hypertensive heart and chronic kidney disease with heart failure and with stage 5 chronic kidney disease, or end stage renal disease; I50.9 Heart failure, unspecified; N18.6 End stage renal disease; E78.5 Hyperlipidemia, unspecified; I25.2 Old myocardial infarction; Z95.0 Presence of cardiac pacemaker; Z98.61 Coronary angioplasty status; W01.0XXA Fall on same level from slipping, tripping and stumbling without subsequent striking against object, initial encounter; Y93.89 Activity, other specified; Y92.89 Other specified places as the place of occurrence of the external cause; Y99.8 Other external cause status
CPT/HCPCS: 70450; 71045; 73110

== ENCOUNTER 2019-09-15 10:25 | Emergency (ER) | payer MEDICARE, OTHER ==
[~2019-09-15] VITALS: Ht 170.2 cm; Wt 120.2 kg
[2019-09-15 11:33] LABS: Basophils # (auto) 0.1 10 ^3/uL (0-0.2); Basophils % (auto) 1.3 % (0.0-2.0); Eosinophils # (auto) 0.1 10 ^3/uL (0-0.8); Eosinophils % (auto) 1.4 % (0.0-7.0); Hematocrit 34.8 % (41.0-53.0); Hemoglobin 11.5 g/dL (13.5-17.5); Lymphocytes # (auto) 1.3 10 ^3/uL (0.4-5.4); Lymphocytes % (auto) 20.2 % (10.0-50.0); Mean Corpuscular Hemoglobin 32.1 pg (28.0-32.0); Mean Corpuscular Hgb Conc. 32.9 g/dL (32.0-36.0); Mean Corpuscular Volume 97.5 fL (80.0-100.0); Monocytes # (auto) 0.5 10 ^3/uL (0-1.3); Monocytes % (auto) 7.6 % (0.0-12.0); Neutrophils # (auto) 4.5 10 ^3/uL (1.6-8.6); Neutrophils % (auto) 69.5 % (37.0-80.0); Nucleated Red Blood Cells % 0.4 %; Platelet Count (auto) 163 10^3/uL (140-450); Red Blood Cells 3.57 10^6/uL (4.5-5.90); Red Cell Distribution Width 14.9 % (11.8-14.3); White Blood Cell 6.5 10^3/uL (4.4-10.8)
[2019-09-15 11:45] LABS: Albumin 3.5 g/dL (3.4-5.0); Calcium 8.6 mg/dL (8.5-10.1); Potassium 5.1 mmol/L (3.5-5.1)
[2019-09-15 11:47] LABS: BUN/Creatinine Ratio 8.6; Bilirubin, Total 0.6 mg/dL (0.2-1.0); Total Protein 7.1 g/dL (6.4-8.2)
[2019-09-15] MEDS ORDERED: MECLIZINE HCL 25 MG TAB PO ONE (12:00)
[2019-09-15 12:51] LABS: Urine Bacteria NONE SEEN /hpf (None Seen); Urine Blood 1+ /uL (Negative); Urine Specific Gravity 1.011 (1.001-1.035); Urine WBC 118 /hpf (0 - 3)
[2019-09-15] MEDS ORDERED: cefTRIAXone 1GM/50ML D5W 50 ML IV ONE (13:30)
[2019-09-15] MEDS ORDERED: FUROSEMIDE 20 MG/2 ML VIAL IV ONE (13:30)
[2019-09-15 14:01] VITALS: BP 164/58
== END 2019-09-15 14:34 | disposition home or self-care (01) ==
LOC: ER 10:25
DX: R42 Dizziness and giddiness (principal); I13.2 Hypertensive heart and chronic kidney disease with heart failure and with stage 5 chronic kidney disease, or end stage renal disease; E11.22 Type 2 diabetes mellitus with diabetic chronic kidney disease; N18.6 End stage renal disease; D63.1 Anemia in chronic kidney disease; I25.10 Atherosclerotic heart disease of native coronary artery without angina pectoris; N39.0 Urinary tract infection, site not specified; E78.5 Hyperlipidemia, unspecified
CPT/HCPCS: 36415; 70450; 71046; 80053; 81001; 82962; 83735; 85025; 96365; 96375; 99285; J0696; J1940; J8597; 93005

== ENCOUNTER 2019-11-09 11:56 | Inpatient (IN) | payer MEDICARE, OTHER ==
[~2019-11-09] VITALS: Ht 170.2 cm; Wt 118.9 kg
[2019-11-09 13:32] LABS: Basophils # (auto) 0 10 ^3/uL (0-0.2); Basophils % (auto) 0.6 % (0.0-2.0); Eosinophils # (auto) 0.1 10 ^3/uL (0-0.8); Hematocrit 33.5 % (41.0-53.0); Lymphocytes # (auto) 1.2 10 ^3/uL (0.4-5.4); Lymphocytes % (auto) 23.8 % (10.0-50.0); Mean Corpuscular Hemoglobin 32.4 pg (28.0-32.0); Mean Corpuscular Hgb Conc. 32.9 g/dL (32.0-36.0); Mean Corpuscular Volume 98.3 fL (80.0-100.0); Monocytes # (auto) 0.5 10 ^3/uL (0-1.3); Monocytes % (auto) 9.8 % (0.0-12.0); Neutrophils # (auto) 3.3 10 ^3/uL (1.6-8.6); Neutrophils % (auto) 64.8 % (37.0-80.0); Platelet Count (auto) 160 10^3/uL (140-450); Red Cell Distribution Width 15.2 % (11.8-14.3); White Blood Cell 5.1 10^3/uL (4.4-10.8)
[2019-11-09 13:44] LABS: Chloride 103 mmol/L (98-107); INR 1.13 (0.9-1.15); Partial Thromboplastin Time 28.9 sec (23.0-31.2); Potassium 5.4 mmol/L (3.5-5.1); Sodium 136 mmol/L (136-145)
[2019-11-09 13:54] LABS: Alanine Aminotransferase 20 U/L (16-61); Albumin 3.5 g/dL (3.4-5.0); Alkaline Phosphatase 104 U/L (45-117); Anion Gap 7 (5-15); Aspartate Aminotransferase 9 U/L (15-37); BUN/Creatinine Ratio 8.3; Bilirubin, Total 0.5 mg/dL (0.2-1.0); Blood Urea Nitrogen 53 mg/dL (7-18); Calcium 8.2 mg/dL (8.5-10.1); Carbon Dioxide 26 mmol/L (21-32); GFR African American 11 mL/min; GFR Non-African American 9 mL/min; Glucose 294 mg/dL (74-106); Magnesium 2.3 mg/dL (1.6-2.6); Total Protein 7.2 g/dL (6.4-8.2)
[2019-11-09 15:28] LABS: Urine Bacteria NONE SEEN /hpf (None Seen); Urine Blood 2+ /uL (Negative); Urine Specific Gravity 1.016 (1.001-1.035); Urine WBC 1047 /hpf (0 - 3); Urine WBC Clumps PRESENT /hpf (None Seen)
[2019-11-09] MEDS ORDERED: cefTRIAXone 1GM/50ML D5W 50 ML IV ONE (16:00)
[2019-11-09] MEDS ORDERED: SODIUM CHLORIDE 0.9% 1,000 ML IV ONE (16:00)
[2019-11-09] MEDS ORDERED: traMADol HCL 50 MG TAB PO PRN (17:15)
[2019-11-09] MEDS ORDERED: MORPHINE SULF INJ 2 MG/ML SYRINGE 1ML IV PRN (17:15)
[2019-11-09] MEDS ORDERED: ONDANSETRON HCL 4 MG/2 ML VIAL IV PRN (17:15)
[2019-11-09] MEDS ORDERED: NITROGLYCERIN 0.4 MG SL TAB SL PRN (17:15)
[2019-11-09] MEDS ORDERED: ACETAMINOPHEN 325 MG TAB PO PRN (17:15)
[2019-11-09] MEDS ORDERED: HYDROcodone-ACET 5/325MG TAB PO PRN (17:15)
[2019-11-09] MEDS ORDERED: DEXTROSE (50%) 50ML SYRG IV PRN (18:15)
[2019-11-09 19:30] VITALS: BP 164/91
--- NOTE | 2019-11-09 20:30 | NUR ---
MS admit from ER [facility] admitted to tele/MS after SBAR received. Patient oriented to SHARMILA REESE RN primary RN, unit, room, bed, and unit policies regarding patient care and visiting hours. Patient weighed by bedscale and encouraged to call if they need something. All questions and concerns addressed, patient verbalized understanding. Note:
[2019-11-09] MEDS: CLOPIDOGREL BISULFATE 75 MG TAB PO SCH (20:35)
[2019-11-09] MEDS: ATORVASTATIN 20 MG TAB PO SCH (20:35)
[2019-11-09] MEDS: GABAPENTIN 100 MG CAP PO SCH (20:36)
[2019-11-09] MEDS: CARVEDILOL 3.125 MG TAB PO SCH (20:36)
[2019-11-09] MEDS: PANTOPRAZOLE 40 MG TAB PO SCH (20:37)
[2019-11-09 21:15] VITALS: BP 164/91
[2019-11-09] MEDS ORDERED: SEVE800T8 PO (21:44)
[2019-11-09] MEDS ORDERED: HYDR-4833 PO (21:44)
[2019-11-09 22:00] VITALS: BP 156/69
[2019-11-09] MEDS: ACCU-CHEK COMFORT CURVE STRIP VI SCH (22:45)
[2019-11-09] MEDS: InsuLIN REG 1unit/0.01ml Soln (100units/ml) SC SCH (22:56)
[2019-11-10 05:14] VITALS: BP 141/72
[2019-11-10] MEDS: LEVOTHYROXINE SODIUM 50 MCG TAB PO SCH (06:27)
[2019-11-10] MEDS: ACCU-CHEK COMFORT CURVE STRIP VI SCH ×4 (06:27→21:36)
--- NOTE | 2019-11-10 06:30 | NUR ---
[facility] SWAB SENT
[2019-11-10] MEDS: InsuLIN REG 1unit/0.01ml Soln (100units/ml) SC SCH ×4 (06:46→21:42)
[2019-11-10] MEDS: FENOFIBRATE 160 MG PO SCH (07:00)
[2019-11-10] MEDS ORDERED: [UNRECOGNIZED DRUG - OTHER] SC SCH (07:00)
[2019-11-10] MEDS ORDERED: NOVOLOG MIX SC SCH (07:00)
--- NOTE | 2019-11-10 07:40 | NUR ---
Opening Shift Note Assumed care of patient, awake and alert and oriented x4. No S/S of distress/SOB or pain. Instructed on POC and to call for assist PRN, will continue to monitor for changes Q1hr and PRN.
[2019-11-10 09:00] VITALS: BP 157/62
[2019-11-10] MEDS ORDERED: cefTRIAXone 1GM/50ML D5W 50 ML IV SCH (10:00)
[2019-11-10] MEDS: FERROUS SULFATE 325 MG TAB PO SCH (11:14)
[2019-11-10] MEDS: LOSARTAN POTASSIUM 25 MG TAB PO SCH (11:15)
[2019-11-10] MEDS: ALPHA LIPOIC ACID 600 MG PO SCH (11:15)
[2019-11-10] MEDS: MULTIPLE VITAMIN TAB PO SCH (11:16)
[2019-11-10] MEDS: ASPirin-EC 81 mg tab PO SCH (11:16)
[2019-11-10] MEDS: CHOLECALCIFEROL (VITD3) 1,000UNIT=25mCg TAB PO SCH (11:17)
[2019-11-10] MEDS: GABAPENTIN 100 MG CAP PO SCH ×2 (11:17→21:41)
[2019-11-10] MEDS: PANTOPRAZOLE 40 MG TAB PO SCH ×2 (11:17→21:41)
[2019-11-10] MEDS: ALLOPURINOL 100 MG TAB PO SCH (11:18)
[2019-11-10 13:00] VITALS: BP 114/75
[2019-11-10 17:00] VITALS: BP 151/72
[2019-11-10] MEDS: CLOPIDOGREL BISULFATE 75 MG TAB PO SCH (18:52)
--- NOTE | 2019-11-10 18:52 | NUR ---
CLOSING NOTE: PATIENT RESTING IN BED. NO S/S OF DISTRESS. CARE ENDORSED.
[2019-11-10] MEDS: ATORVASTATIN 20 MG TAB PO SCH (21:40)
[2019-11-10] MEDS: CARVEDILOL 3.125 MG TAB PO SCH (21:49)
[2019-11-10 22:00] VITALS: BP 124/67
[2019-11-10] MEDS ORDERED: ATORVASTATIN 20 MG TAB PO SCH (22:00)
[2019-11-11 05:00] VITALS: BP 103/34
[2019-11-11] MEDS: ACCU-CHEK COMFORT CURVE STRIP VI SCH ×4 (06:20→21:47)
[2019-11-11] MEDS: LEVOTHYROXINE SODIUM 50 MCG TAB PO SCH (06:32)
[2019-11-11] MEDS: InsuLIN REG 1unit/0.01ml Soln (100units/ml) SC SCH ×4 (06:33→21:47)
[2019-11-11] MEDS: FENOFIBRATE 160 MG PO SCH (07:00)
--- NOTE | 2019-11-11 08:52 | NUR ---
POM AT BEDSIDE. PATIENT REFUSED FOR THIS NURSE TO TAKE TO PHARMACY, PATIENT EDUCATED TO NOT TAKE ANY OF HIS OWN MEDICATIONS WHILE STILL ADMITTED TO THE HOSPITAL. PATIENT VERBALLY AGREED.
[2019-11-11 09:00] VITALS: BP 131/62
--- NOTE | 2019-11-11 09:10 | NUR ---
DR. DYER: DR. Alejandra BARKER AT BEDSIDE, DISCUSSED POC WITH PATIENT, PATIENT VERBALLY AGREED. PER MD "DISCHARGE TOMORROW MORNING AFTER IV ANTIBIOTICS."
--- NOTE | 2019-11-11 09:17 | NUR ---
SCIENTIFIC ARTIST AT BEDSIDE.
[2019-11-11] MEDS ORDERED: SODIUM CHL 0.9% 1000 ML BAG XX ONE (10:00)
[2019-11-11] MEDS: ALPHA LIPOIC ACID 600 MG PO SCH (10:00)
[2019-11-11] MEDS: GABAPENTIN 100 MG CAP PO SCH ×2 (14:22→21:47)
[2019-11-11] MEDS: MULTIPLE VITAMIN TAB PO SCH (14:22)
[2019-11-11] MEDS: ASPirin-EC 81 mg tab PO SCH (14:22)
[2019-11-11] MEDS: CHOLECALCIFEROL (VITD3) 1,000UNIT=25mCg TAB PO SCH (14:22)
[2019-11-11] MEDS: PANTOPRAZOLE 40 MG TAB PO SCH ×2 (14:23→21:47)
[2019-11-11] MEDS: LOSARTAN POTASSIUM 25 MG TAB PO SCH (14:23)
[2019-11-11] MEDS: FERROUS SULFATE 325 MG TAB PO SCH (14:23)
[2019-11-11] MEDS: ALLOPURINOL 100 MG TAB PO SCH (14:26)
[2019-11-11] MEDS: CEFTRIAXONE SODIUM 2 GM in D5W 5% 50 ML IV SCH (14:39)
--- NOTE | 2019-11-11 15:30 | NUR ---
NEW IV PLACED IN LEFT UPPER ARM, FLUSHED, AND PATENT. PT. TOLERATED PROCEDURE WELL.
[2019-11-11 17:28] VITALS: BP 149/59
[2019-11-11] MEDS: CLOPIDOGREL BISULFATE 75 MG TAB PO SCH (18:24)
--- NOTE | 2019-11-11 18:58 | NUR ---
CLOSING NOTE: PATIENT RESTING IN BED. NO S/S OF DISTRESS. CARE ENDORSED.
[2019-11-11] MEDS: ATORVASTATIN 20 MG TAB PO SCH (21:47)
[2019-11-11 22:00] VITALS: BP 132/55
[2019-11-11] MEDS ORDERED: CARVEDILOL 3.125 MG TAB PO PRN (22:00)
[2019-11-12 05:00] VITALS: BP 140/62
[2019-11-12] MEDS: ACCU-CHEK COMFORT CURVE STRIP VI SCH (06:27)
[2019-11-12] MEDS: FENOFIBRATE 160 MG PO SCH (06:27)
[2019-11-12] MEDS: InsuLIN REG 1unit/0.01ml Soln (100units/ml) SC SCH (06:27)
[2019-11-12] MEDS: LEVOTHYROXINE SODIUM 50 MCG TAB PO SCH (06:28)
--- NOTE | 2019-11-12 07:45 | NUR ---
Received patient alert and oriented x4, not in distress, clear sounds in bilateral lung lobes, RR=18 Sat=96%, deep breathing and coughing was encouraged, demonstrated and verbalized understanding, denied chest pain and SOB, Heart rate=68, abdomen soft and active in all four quadrants, last BM= as reported, skin intact and warm to touch, resting on bed, denied pain, head of bed elevated, zev on low position, rails up x2, call light on reach, pending d/c home today, will continue monitoring.
[2019-11-12 09:00] VITALS: BP 140/65
[2019-11-12] MEDS: CEFTRIAXONE SODIUM 2 GM in D5W 5% 50 ML IV SCH (09:23)
[2019-11-12] MEDS: FERROUS SULFATE 325 MG TAB PO SCH (09:23)
[2019-11-12] MEDS: ALPHA LIPOIC ACID 600 MG PO SCH (09:23)
[2019-11-12] MEDS: LOSARTAN POTASSIUM 25 MG TAB PO SCH (09:24)
[2019-11-12] MEDS: GABAPENTIN 100 MG CAP PO SCH (09:25)
[2019-11-12] MEDS: MULTIPLE VITAMIN TAB PO SCH (09:25)
[2019-11-12] MEDS: PANTOPRAZOLE 40 MG TAB PO SCH (09:25)
[2019-11-12] MEDS: ASPirin-EC 81 mg tab PO SCH (09:25)
[2019-11-12] MEDS: ALLOPURINOL 100 MG TAB PO SCH (09:26)
[2019-11-12] MEDS: CHOLECALCIFEROL (VITD3) 1,000UNIT=25mCg TAB PO SCH (09:26)
[2019-11-12 10:14] VITALS: BP 146/65
--- NOTE | 2019-11-12 11:06 | NUR ---
D/C instructions and education provided, verbalized understanding, follow up with PCP arrangement and medication prescription provided, d/c IV site, tolerated well, not in distress, denied pain, WC provided, went home walking accompanied by family, took all belongings and left nothing.
--- NOTE | 2019-11-12 11:08 | NUR ---
Nutrition Assessment Est energy needs [id number] kcal (14-18 kcal/kg BW 118.9kg) Est protein needs 119-143g (1-1.2g/kg BW 118.9 kg r/t ESRD on HD) Will reassess prn. Addendum: 11/12/19 at [address] Amended: Links added.
[2019-11-12] MEDS ORDERED: TAMSULOSIN HYDROCHLORIDE 0.4 MG CAP PO SCH (18:00)
[2019-11-13] MEDS ORDERED: SODIUM CHL 0.9% 1000 ML BAG XX ONE (07:00)
== END 2019-11-12 10:50 | disposition home or self-care (01) | DRG 689 ==
LOC: ER 11:56 → OVERFLOW 11:57 → WEST WING 19:40
PROVIDERS: ADMIT Specialist; ATTEND Specialist
PROC: 5A1D70Z Performance of Urinary Filtration, Intermittent, Less than 6 Hours Per Day (ICD-10-PCS; principal; 2019-11-11)
DX: N30.00 Acute cystitis without hematuria (principal); I50.43 Acute on chronic combined systolic (congestive) and diastolic (congestive) heart failure; N18.6 End stage renal disease; I13.2 Hypertensive heart and chronic kidney disease with heart failure and with stage 5 chronic kidney disease, or end stage renal disease; Z68.41 Body mass index [BMI] 40.0-44.9, adult; E11.22 Type 2 diabetes mellitus with diabetic chronic kidney disease; D63.8 Anemia in other chronic diseases classified elsewhere; E87.5 Hyperkalemia; Z88.8 Allergy status to other drugs, medicaments and biological substances; Z83.3 Family history of diabetes mellitus; Z82.49 Family history of ischemic heart disease and other diseases of the circulatory system; I25.10 Atherosclerotic heart disease of native coronary artery without angina pectoris; Z99.2 Dependence on renal dialysis; Z95.1 Presence of aortocoronary bypass graft; Z79.899 Other long term (current) drug therapy; Z79.02 Long term (current) use of antithrombotics/antiplatelets; E66.9 Obesity, unspecified; Z90.49 Acquired absence of other specified parts of digestive tract; R42 Dizziness and giddiness; M10.9 Gout, unspecified
CPT/HCPCS: 36415; 70450; 71046; 80053; 81001; 82962; 83735; 84484; 85025; 85610; 85730; 87081; 87086; 87088; 87186; 90935; 93005; 96365; G0378; J0696; J1815; J7060

== ENCOUNTER 2020-05-18 20:40 | Inpatient (IN) | payer MEDICARE, OTHER ==
[~2020-05-18] VITALS: Ht 175.3 cm; Wt 122.1 kg
[~2020-05-18 20:40] MED LIST changes: +HYDR-4833 PO; -LORA-655 PO; +SEVE800T8 PO; -TRAM50TA2 PO; -ZOLP10TA PO
[2020-05-18 22:14] LABS: Basophils # (auto) 0 10 ^3/uL (0-0.2); Basophils % (auto) 0.5 % (0.0-2.0); Eosinophils # (auto) 0.1 10 ^3/uL (0-0.8); Mean Corpuscular Hgb Conc. 34.2 g/dL (32.0-36.0)
[2020-05-18 22:16] LABS: Eosinophils % (auto) 0.9 % (0.0-7.0); Hematocrit 29.2 % (41.0-53.0); Lymphocytes # (auto) 1.2 10 ^3/uL (0.4-5.4); Lymphocytes % (auto) 18.7 % (10.0-50.0); Mean Corpuscular Hemoglobin 34.3 pg (28.0-32.0); Mean Corpuscular Volume 100.4 fL (80.0-100.0); Monocytes # (auto) 0.6 10 ^3/uL (0-1.3); Monocytes % (auto) 8.6 % (0.0-12.0); Neutrophils # (auto) 4.6 10 ^3/uL (1.6-8.6); Neutrophils % (auto) 71.3 % (37.0-80.0); Nucleated Red Blood Cells % 0.2 %; Platelet Count (auto) 172 10^3/uL (140-450); Red Blood Cells 2.91 10^6/uL (4.5-5.90); Red Cell Distribution Width 14.3 % (11.8-14.3); White Blood Cell 6.5 10^3/uL (4.4-10.8)
[2020-05-18 22:27] LABS: Albumin 3.4 g/dL (3.4-5.0); Anion Gap 9 (5-15); Blood Urea Nitrogen 38 mg/dL (7-18); Calcium 7.1 mg/dL (8.5-10.1); Carbon Dioxide 26 mmol/L (21-32); Chloride 99 mmol/L (98-107); Glucose 370 mg/dL (74-106); Potassium 4.9 mmol/L (3.5-5.1); Sodium 134 mmol/L (136-145)
[2020-05-18 22:29] LABS: Alanine Aminotransferase 20 U/L (16-61); Aspartate Aminotransferase 24 U/L (15-37); BUN/Creatinine Ratio 7.4; GFR African American 14 mL/min; GFR Non-African American 12 mL/min
[2020-05-18 22:36] LABS: Alkaline Phosphatase 128 U/L (45-117); Bilirubin, Total 0.4 mg/dL (0.2-1.0)
[2020-05-18 23:16] LABS: INR 1.06 (0.9-1.15); Partial Thromboplastin Time 29.1 sec (23.0-31.2)
[2020-05-19] MEDS ORDERED: InsuLIN REG 1unit/0.01ml Soln (100units/ml) SC ONE ×2 (00:45→03:00)
[2020-05-19] MEDS ORDERED: ONDANSETRON HCL 4 MG/2 ML VIAL IV PRN (09:00)
[2020-05-19] MEDS ORDERED: CARVEDILOL 3.125 MG TAB PO PRN (09:00)
[2020-05-19] MEDS ORDERED: HYDROcodone-ACET 5/325MG TAB PO PRN (09:00)
[2020-05-19] MEDS ORDERED: MORPHINE SULF INJ 2 MG/ML SYRINGE 1ML IV PRN ×2 (09:00)
[2020-05-19] MEDS ORDERED: ACETAMINOPHEN 500 MG TAB PO PRN (09:00)
[2020-05-19] MEDS ORDERED: DEXTROSE (50%) 50ML SYRG IV PRN (09:00)
[2020-05-19] MEDS ORDERED: NITROGLYCERIN 0.4 MG SL TAB SL PRN (09:00)
[2020-05-19 11:19] LABS: BUN/Creatinine Ratio 7.7; Potassium 5.2 mmol/L (3.5-5.1)
[2020-05-19 11:20] VITALS: BP 153/64
[2020-05-19] MEDS: ACCU-CHEK COMFORT CURVE STRIP VI SCH ×3 (11:44→21:32)
[2020-05-19] MEDS: LOSARTAN POTASSIUM 25 MG TAB PO SCH (11:44)
[2020-05-19] MEDS: GABAPENTIN 300 MG CAP PO SCH (11:44)
[2020-05-19] MEDS: ALLOPURINOL 100 MG TAB PO SCH (11:44)
[2020-05-19] MEDS: SEVELAMER 800 MG TAB PO SCH ×2 (11:44→17:50)
[2020-05-19] MEDS: InsuLIN REG 1unit/0.01ml Soln (100units/ml) SC SCH ×3 (11:55→21:52)
[2020-05-19] MEDS ORDERED: GABA-339 PO (13:10)
[2020-05-19] MEDS ORDERED: SODIUM ZIRCONIUM CYCL 10 GM PAK PO ONE (13:45)
[2020-05-19 14:07] VITALS: BP 159/57
[2020-05-19 14:14] VITALS: BP 159/57
[2020-05-19 17:00] VITALS: BP 150/63
[2020-05-19] MEDS: CLOPIDOGREL BISULFATE 75 MG TAB PO SCH (17:50)
[2020-05-19] MEDS ORDERED: PATIENTS OWN MEDICATION (Atorvastatin Calcium (Lipitor) 1 TAB) PO SCH (18:00)
[2020-05-19 20:00] VITALS: BP 149/66
[2020-05-19] MEDS: ATORVASTATIN 20 MG TAB PO SCH (21:32)
[2020-05-19] MEDS: INSULIN LANTUS (GLARGINE) 1 /0.01ml (100units/ml) SC SCH (21:52)
[2020-05-19 22:14] VITALS: BP 149/66
[2020-05-20 05:03] VITALS: BP 126/51
[2020-05-20 06:02] LABS: Basophils # (auto) 0 10 ^3/uL (0-0.2); Basophils % (auto) 0.5 % (0.0-2.0); Eosinophils # (auto) 0.1 10 ^3/uL (0-0.8); Eosinophils % (auto) 1.3 % (0.0-7.0); Hematocrit 28.2 % (41.0-53.0); Hemoglobin 9.6 g/dL (13.5-17.5); Lymphocytes # (auto) 1.4 10 ^3/uL (0.4-5.4); Lymphocytes % (auto) 22.1 % (10.0-50.0); Mean Corpuscular Hemoglobin 34.1 pg (28.0-32.0); Mean Corpuscular Hgb Conc. 33.9 g/dL (32.0-36.0); Mean Corpuscular Volume 100.6 fL (80.0-100.0); Monocytes # (auto) 0.6 10 ^3/uL (0-1.3); Monocytes % (auto) 9.1 % (0.0-12.0); Neutrophils # (auto) 4.1 10 ^3/uL (1.6-8.6); Platelet Count (auto) 157 10^3/uL (140-450); Red Cell Distribution Width 14.3 % (11.8-14.3); White Blood Cell 6.2 10^3/uL (4.4-10.8)
[2020-05-20 06:14] LABS: Potassium 4.8 mmol/L (3.5-5.1)
[2020-05-20 06:16] LABS: BUN/Creatinine Ratio 8.6; Magnesium 2.2 mg/dL (1.6-2.6)
[2020-05-20] MEDS: ASPirin-EC 81 mg tab PO SCH (06:16)
[2020-05-20] MEDS: LEVOTHYROXINE SODIUM 25 MCG TAB PO SCH (06:16)
[2020-05-20] MEDS: ACCU-CHEK COMFORT CURVE STRIP VI SCH ×4 (06:27→21:38)
[2020-05-20] MEDS: INSULIN LANTUS (GLARGINE) 1 /0.01ml (100units/ml) SC SCH ×2 (06:39→21:37)
[2020-05-20] MEDS: InsuLIN REG 1unit/0.01ml Soln (100units/ml) SC SCH ×4 (06:39→21:37)
[2020-05-20] MEDS ORDERED: PATIENTS OWN MEDICATION (Levothyroxine Sodium 1 TAB) PO SCH (07:00)
[2020-05-20] MEDS ORDERED: SODIUM CHL 0.9% 1000 ML BAG XX ONE (07:00)
[2020-05-20 09:00] VITALS: BP 157/78
[2020-05-20] MEDS: LOSARTAN POTASSIUM 25 MG TAB PO SCH (10:00)
[2020-05-20] MEDS: SEVELAMER 800 MG TAB PO SCH ×3 (11:19→17:45)
[2020-05-20] MEDS: ALLOPURINOL 100 MG TAB PO SCH (11:20)
[2020-05-20] MEDS: GABAPENTIN 300 MG CAP PO SCH (11:20)
[2020-05-20 13:00] VITALS: BP 148/65
[2020-05-20 16:33] VITALS: BP 137/68
[2020-05-20] MEDS: CLOPIDOGREL BISULFATE 75 MG TAB PO SCH (17:44)
[2020-05-20] MEDS ORDERED: EPOETIN ALFA-EPBX 10,000 UNIT/1ML VIAL SC ONE (21:00)
[2020-05-20] MEDS: ATORVASTATIN 20 MG TAB PO SCH (21:14)
[2020-05-21 05:00] VITALS: BP 124/58
[2020-05-21] MEDS: ASPirin-EC 81 mg tab PO SCH (06:04)
[2020-05-21] MEDS: LEVOTHYROXINE SODIUM 25 MCG TAB PO SCH (06:05)
[2020-05-21] MEDS: INSULIN LANTUS (GLARGINE) 1 /0.01ml (100units/ml) SC SCH (06:33)
[2020-05-21] MEDS: InsuLIN REG 1unit/0.01ml Soln (100units/ml) SC SCH (06:34)
[2020-05-21] MEDS: ACCU-CHEK COMFORT CURVE STRIP VI SCH (06:34)
[2020-05-21 08:00] VITALS: BP 148/77
[2020-05-21] MEDS: SEVELAMER 800 MG TAB PO SCH (08:34)
[2020-05-21 09:00] VITALS: BP 148/77
[2020-05-21] MEDS: LOSARTAN POTASSIUM 25 MG TAB PO SCH (09:44)
[2020-05-21] MEDS: ALLOPURINOL 100 MG TAB PO SCH (09:46)
[2020-05-21] MEDS: GABAPENTIN 300 MG CAP PO SCH (09:46)
[2020-05-21 09:57] VITALS: BP 148/77
== END 2020-05-21 11:50 | disposition home or self-care (01) | DRG 308 ==
LOC: EDBD 20:40 → ER 20:40 → TELE 05-19 08:53 → TELE-WESTW 05-19 10:24
PROVIDERS: ADMIT Nurse Practitioner Acute Care; ATTEND Internal Medicine
PROC: 4B02XTZ Measurement of Cardiac Defibrillator, External Approach (ICD-10-PCS; 2020-05-19)
PROC: 5A1D70Z Performance of Urinary Filtration, Intermittent, Less than 6 Hours Per Day (ICD-10-PCS; principal; 2020-05-20)
DX: T82.120A Displacement of cardiac electrode, initial encounter (principal); N18.6 End stage renal disease; I50.22 Chronic systolic (congestive) heart failure; I13.2 Hypertensive heart and chronic kidney disease with heart failure and with stage 5 chronic kidney disease, or end stage renal disease; I25.5 Ischemic cardiomyopathy; D63.8 Anemia in other chronic diseases classified elsewhere; Z66 Do not resuscitate; E66.9 Obesity, unspecified; E03.9 Hypothyroidism, unspecified; I25.10 Atherosclerotic heart disease of native coronary artery without angina pectoris; E87.5 Hyperkalemia; Z20.822 Contact with and (suspected) exposure to COVID-19; E11.22 Type 2 diabetes mellitus with diabetic chronic kidney disease; E78.5 Hyperlipidemia, unspecified; Y71.2 Prosthetic and other implants, materials and accessory cardiovascular devices associated with adverse incidents; J44.9 Chronic obstructive pulmonary disease, unspecified; Z68.39 Body mass index [BMI] 39.0-39.9, adult; Z79.4 Long term (current) use of insulin; Z82.49 Family history of ischemic heart disease and other diseases of the circulatory system; Z83.3 Family history of diabetes mellitus; Z95.1 Presence of aortocoronary bypass graft; Z95.810 Presence of automatic (implantable) cardiac defibrillator; Z99.2 Dependence on renal dialysis
CPT/HCPCS: 36415; 71045; 71046; 80048; 80053; 82962; 83036; 83735; 83880; 84443; 84484; 85025; 85610; 85730; 87081; 87426; 90935; 93005; 96372; G0378; J1815